=== PATIENT | female | born 1960 | race Caucasian/White ===

== ENCOUNTER 2017-10-24 19:39 | Emergency (ER) | payer BC, SELFPAY | END 2017-10-24 20:20 | disposition home or self-care (01) | PROVIDERS: Emergency Provider Nurse Practitioner Family; Family Provider Family Medicine; Visit Provider Nurse Practitioner Family | DX: J06.9 Acute upper respiratory infection, unspecified (principal); E78.5 Hyperlipidemia, unspecified; Z88.2 Allergy status to sulfonamides; Z88.8 Allergy status to other drugs, medicaments and biological substances; Z79.82 Long term (current) use of aspirin; Z79.899 Other long term (current) drug therapy | CPT/HCPCS: 87880; 99201 ==

== ENCOUNTER 2017-10-30 10:51 | Emergency (ER) | payer BC, SELFPAY | END 2017-10-30 11:13 | disposition home or self-care (01) | PROVIDERS: Emergency Provider Nurse Practitioner; Visit Provider Nurse Practitioner | DX: H66.91 Otitis media, unspecified, right ear (principal); K21.9 Gastro-esophageal reflux disease without esophagitis; Z88.2 Allergy status to sulfonamides | CPT/HCPCS: 99201 ==

== ENCOUNTER → 2017-12-29 14:43 | Outpatient (CLI) | payer BC, SELFPAY ==
--- NOTE | 2017-12-29 14:47 | MR_ITS ---
MR cervical spine wo con, MR 3-d myelogram/MRCP Ordering Physician: Leyla Burch Patient Age: 57 years: Female HISTORY: Neck pain on and off for years. Bilateral arm pain.-Numbness tingling. Getting worse TECHNIQUE: Sagittal STIR, T1, T2, axial T1 and T2. On 1.5T Siemens wide bore MRI. 3-D MR myelogram image set obtained & performed on MRI workstation. Additional sagittal thin section T2 weighted dataset obtained from this latter acquisition as well (---76 CPT) COMPARISON : No previous cervical studies FINDINGS. Scant mucosal thickening sphenoid sinus The cervical cranial junction appears intact. Nonspecific straightening cervical spine. Modest volume underlying osseous spinal canal C2/3 disc and cord normal. C3/4. Slight disc space narrowing posteriorly with mild spondylosis. Minor posterior hypertrophic endplate ridging with with early uncovertebral joint hypertrophy ileum encroachment upon entry neural foramen bilaterally C3/4 disc intact. Trace uncovertebral joint hypertrophy bilateral C4/5. Mild bilateral uncovertebral joint hypertrophy yields/moderate encroachment upon the left foramen and mild to the right. C5/6 Mild degenerative disc space narrowing. Mild reactive endplate changes posteriorlyCervical spondylosis . Mild mixed disc protrusion to the right.-. Indents thecal sac & slightly effaces/flattens anterior anterior aspect of cervical cord midline midline and to the right.... c6/7 disc intact. C7/T1, T1/T2, T2/T3, T3/T4 disc included and unremarkable. More generous osseous spinal canal to the lower L-spine level. 3-D MR myelogram image set shows narrowing of thecal sac to the region of multilevel cervical spondylosis, from C3 through C6. The borderline spinal stenosis most notable at C5/6 and slight lesser degree C4/5 through 6. ======= IMPRESSION: ==== Early degenerative disc changes & cervical spondylosis.-Features narrow the spinal canal from C3 through C6; and yield mild bilateral foraminal encroachment at these levels to varying degrees. Borderline spinal stenosis through these levels at the mid C-spine Findings most notable at C5-C6:. A mixed disc protrusion mildly effaces and flattens flattens cervical cord midline & to the right C3/4 with subtle posterior ridging & mild lateral uncovertebral joint hypertrophy yielding mild bilateral foraminal encroachment. . C4/5 with mild uncovertebral joint hypertrophy with foraminal encroachment slightly more evident to the left than right.
== END ==
PROVIDERS: Family Provider Family Medicine; PCP Nurse Practitioner; Visit Provider Nurse Practitioner Family
DX: M54.2 Cervicalgia (principal)
CPT/HCPCS: 72141; 76376

== ENCOUNTER 2018-01-12 09:24 | Emergency (ER) | payer BC, SELFPAY ==
[2018-01-12 09:42] VITALS: BP 120/73; PULSE 95; RESP 20; TEMP 36.8; O2SAT 98; BMI 34.0
--- NOTE | 2018-01-12 09:50 | HMH.EDUTC ---
[facility] [place] Disposition Clinical Impression: Otitis media Qualifiers: Otitis media type: unspecified Laterality: right Qualified Code(s): H66.91 - Otitis media, unspecified, right ear Disposition: Home, Self-Care Condition on Discharge: Good Instructions: Vertigo, DI for Vertigo, DI for Otitis Media (Middle Ear Infection)-Child Additional Instructions: Make slow movements and stand slowly to help reduce dizziness If symptoms persist follow up with family doctor If symptoms worsen or become life threatening go straight to ER REturn if needed Take medication as prescribed Prescriptions: Amoxicillin [Amoxicillin 500mg Cap] 500 mg PO TID #30 cap Meclizine HCl [Meclizine 25mg Tab] 25 mg PO BID PRN #20 tab PRN Reason: Dizziness Referrals: Sintia Pope APRN [Primary Care Provider] - Forms: Work/School Release Time of Disposition: 10:16 Medical Decision Making - Medical Records Medical records reviewed: Yes: I reviewed the patient's medical records. Vital Signs: 01/12/18 09:42 Temperature 98.2 F Temperature Source Temporal Artery Scan Pulse Rate [Radial] 95 H Respiratory Rate 20 Blood Pressure [Right Arm] 120/73 Blood Pressure Mean [Right Arm] 88 Blood Pressure Source [Right Arm] Automatic Cuff Blood Pressure Position [Right Arm] Sitting 02 Sat by Pulse Oximetry 98 Oxygen Delivery Method Room Air Orders (Tests/Meds): ED MEDICATIONS Discontinued Medications Generic Name Dose Route Start Last Admin Trade Name Freq PRN Reason Stop Dose Admin Meclizine HCl 25 mg 01/12/18 09:59 01/12/18 10:02 Antivert 25mg Tablet PO 01/12/18 10:00 25 mg ONCE ONE Administration - Frandy Inquiry Pt receiving controlled substance: No Frandy was queried for this patient: No - Reevaluation(s) Time: 10:13 Reevaluation #1: Patient state that she is feeling better now that medication helped with dizziness State that she no longer is having dizziness [facility] [place] HPI - General Stated complaint: dizzy inner ear Mode of Arrival: Ambulatory Source of Information: Patient Limitations: No Limitations Description of Symptoms (Recalled from Triage Doc. by RN): both ears draining and dizzy x 2 days HEENT Symptoms (Recalled from RN notes): Yes Resp Symptoms (Recalled from RN notes): No Skin Symptoms (Recalled from RN notes): No MS Symptoms (Recalled from RN notes): No Functional Status (Recalled from RN notes): na - History of Present Illness Provider Complaint: Patient states that she has had chronic ear problems State that she feels like there is something running/draining from her right ear but has not seen any liquid. State that she has noticed that if she moves quickly she gets dizzy State that yesterday she rolled over in bed and she got dizzy and nausous States that she did this before with an inner ear infection and had to take Meclizine and antibiotics State that this feels just like it did then - Related Data Home Medications Medication Instructions Recorded Confirmed Aspirin 81 mg PO DAILY 01/12/18 01/12/18 Olmesartan/Hydrochlorothiazide 1 mg PO DAILY 01/12/18 01/12/18 [Olmesartan-Hctz 40-12.5 mg Tab] Pantoprazole Sodium [Protonix 40mg 40 mg PO BID 01/12/18 01/12/18 tablet] Pravastatin Sodium [Pravastatin 10 mg PO DAILY 01/12/18 01/12/18 Sodium] Previous Rx's Medication Instructions Recorded Amoxicillin [Amoxicillin 500mg 500 mg PO TID #30 cap 01/12/18 Cap] Meclizine HCl [Meclizine 25mg Tab] 25 mg PO BID PRN #20 tab 01/12/18 Allergies Allergy/AdvReac Type Severity Reaction Status Date / Time Sulfa (Sulfonamide Allergy Unknown Unverified 10/28/17 14:31 Antibiotics) [SULFA (SULFONAMIDE ANTIBIOTICS)] tiotropium Allergy Unknown Unverified 10/28/17 14:31 [From [facility] HANDIHALER] - Worker's Comp Is this a Worker's Comp case?: No [facility] History I have reviewed the patient's past medical history: Yes - Social History Sm
--- NOTE | 2018-01-12 09:59 | ED_ITS ---
[facility] [place] Disposition Clinical Impression: Otitis media Qualifiers: Otitis media type: unspecified Laterality: right Qualified Code(s): H66.91 - Otitis media, unspecified, right ear Disposition: Home, Self-Care Condition on Discharge: Good Instructions: Vertigo, DI for Vertigo, DI for Otitis Media (Middle Ear Infection)-Child Additional Instructions: Make slow movements and stand slowly to help reduce dizziness If symptoms persist follow up with family doctor If symptoms worsen or become life threatening go straight to ER REturn if needed Take medication as prescribed Prescriptions: Amoxicillin [Amoxicillin 500mg Cap] 500 mg PO TID #30 cap Meclizine HCl [Meclizine 25mg Tab] 25 mg PO BID PRN #20 tab PRN Reason: Dizziness Referrals: Sintia Pope APRN [Primary Care Provider] - Forms: Work/School Release Time of Disposition: 10:16 Medical Decision Making - Medical Records Medical records reviewed: Yes: I reviewed the patient's medical records. Vital Signs: 01/12/18 09:42 Temperature 98.2 F Temperature Source Temporal Artery Scan Pulse Rate [Radial] 95 H Respiratory Rate 20 Blood Pressure [Right Arm] 120/73 Blood Pressure Mean [Right Arm] 88 Blood Pressure Source [Right Arm] Automatic Cuff Blood Pressure Position [Right Arm] Sitting 02 Sat by Pulse Oximetry 98 Oxygen Delivery Method Room Air Orders (Tests/Meds): ED MEDICATIONS Discontinued Medications Generic Name Dose Route Start Last Admin Trade Name Freq PRN Reason Stop Dose Admin Meclizine HCl 25 mg 01/12/18 09:59 01/12/18 10:02 Antivert 25mg Tablet PO 01/12/18 10:00 25 mg ONCE ONE Administration - Frandy Inquiry Pt receiving controlled substance: No Frandy was queried for this patient: No - Reevaluation(s) Time: 10:13 Reevaluation #1: Patient state that she is feeling better now that medication helped with dizziness State that she no longer is having dizziness [facility] [place] HPI - General Stated complaint: dizzy inner ear Mode of Arrival: Ambulatory Source of Information: Patient Limitations: No Limitations Description of Symptoms (Recalled from Triage Doc. by RN): both ears draining and dizzy x 2 days HEENT Symptoms (Recalled from RN notes): Yes Resp Symptoms (Recalled from RN notes): No Skin Symptoms (Recalled from RN notes): No MS Symptoms (Recalled from RN notes): No Functional Status (Recalled from RN notes): na - History of Present Illness Provider Complaint: Patient states that she has had chronic ear problems State that she feels like there is something running/draining from her right ear but has not seen any liquid. State that she has noticed that if she moves quickly she gets dizzy State that yesterday she rolled over in bed and she got dizzy and nausous States that she did this before with an inner ear infection and had to take Meclizine and antibiotics State that this feels just like it did then - Related Data Home Medications Medication Instructions Recorded Confirmed Aspirin 81 mg PO DAILY 01/12/18 01/12/18 Olmesartan/Hydrochlorothiazide 1 mg PO DAILY 01/12/18 01/12/18 [Olmesartan-Hctz 40-12.5 mg Tab] Pantoprazole Sodium [Protonix 40mg 40 mg PO BID 01/12/18 01/12/18 tablet] Pravastatin Sodium [Pravastatin 10 mg PO DAILY 01/12/18 01/12/18 Sodium] Prev
[2018-01-12 10:19] VITALS: BP 120/73; PULSE 95; RESP 20; TEMP 36.8; O2SAT 98
== END 2018-01-12 10:20 | disposition home or self-care (01) ==
PROVIDERS: Emergency Provider Nurse Practitioner; Family Provider Family Medicine; PCP Nurse Practitioner
DX: H66.91 Otitis media, unspecified, right ear (principal); Z88.2 Allergy status to sulfonamides; Z88.8 Allergy status to other drugs, medicaments and biological substances
CPT/HCPCS: 99202

== ENCOUNTER → 2018-01-14 13:56 | Outpatient (CLI) | payer BC, SELFPAY ==
--- NOTE | 2018-01-14 14:04 | US_ITS ---
US thyroid HISTORY: Follow-up thyroid nodule ITS.REASON: THYROID DISEASE ORDERING PHYSICIAN: Sintia Pope PATIENT AGE: 57 years COMPARISON: None FINDINGS: Right lobe: 4.5 x 1.6 x 1.8 cm. There is a 7 mm mixed mostly hypoechoic nodule in the right lateral aspect of the isthmus similar to the previous exam. A 3 mm hypoechoic nodules present in the lower pole Left lobe: 3.8 x 1.2 x 1.6 cm with homogeneous echogenicity. Isthmus: 7 mm mixed hypoechoic nodule laterally IMPRESSION: Overall no change in the heterogeneous hypoechoic nodule of the right aspect of the isthmus. Low level of suspicion for malignancy.
== END ==
PROVIDERS: Family Provider Family Medicine; PCP Nurse Practitioner; Visit Provider Nurse Practitioner
DX: E07.9 Disorder of thyroid, unspecified (principal)
CPT/HCPCS: 76536

== ENCOUNTER → 2018-04-20 13:43 | Outpatient (POV) | payer BC, SELFPAY | PROVIDERS: Family Provider Family Medicine; PCP Family Medicine; Visit Provider Nurse Practitioner Acute Care | DX: Z00.00 Encounter for general adult medical examination without abnormal findings (principal) ==

== ENCOUNTER 2018-05-04 12:23 | Emergency (ER) | payer BC, SELFPAY ==
[2018-05-04 12:33] VITALS: BP 188/89; PULSE 68; RESP 20; TEMP 36.8; O2SAT 100; BMI 32.1
--- NOTE | 2018-05-04 12:46 | HMH.EDUTC ---
[facility] [place] Clinical Impression: Muscle spasm Arm pain Qualifiers: Laterality: left Qualified Code(s): M79.602 - Pain in left arm Disposition: Home, Self-Care Condition on Discharge: Good Instructions: DI for Muscle Spasm Additional Instructions: *Remember you had a Toradol shot in the clinic today, which is similar to Motrin *Not additional anti-inflammatory like motrin, aleve, advil with the above amount of ibuprofen for 8 hours. You can still take Tylenol every 4 hours as needed if you need something else for pain *Ice 20 minutes every 2 hours for the first 48 hours after the initial injury followed by moist heat every 20 minutes 3-4 times a day to affected area *Muscle relaxer every 8 hours as needed for muscle spasms but remember, it WILL cause drowsiness You cannot take it and drive, operate machinery or care for small children. *Keep this area active, no movement leads to more stiffness, However take it easy and avoid heavy lifting pushing or pulling If you begin having any chest pain or any life threatening symptoms, go straight to ER Follow up with family doctor in 24-48 hours if no improvement or worsening of symptoms Prescriptions: Cyclobenzaprine HCl [Flexeril 10mg tablet] 10 mg PO TID PRN #15 tab PRN Reason: Muscle Spasm Etodolac [Etodolac 200mg Cap] 200 mg PO Q6H PRN #20 cap PRN Reason: Moderate Pain Referrals: Cameron Schreiber MD [Primary Care Provider] - As needed (Follow up in 24-48 hours if no improvement or worsening of symptoms) Time of Disposition: 13:18 Medical Decision Making - Medical Records Medical records reviewed: Yes: I reviewed the patient's medical records. - Frandy Inquiry Pt receiving controlled substance: No Frandy was queried for this patient: No Vital Signs: 05/04/18 12:33 05/04/18 13:11 Temperature 98.2 F 98.2 F Temperature Source Temporal Artery Scan Temporal Artery Scan Pulse Rate 68 Pulse Rate [Brachial] 68 Respiratory Rate 20 20 Blood Pressure 188/89 Blood Pressure [Right Arm] 188/89 Blood Pressure Mean [Right Arm] 122 Blood Pressure Position [Right Arm] Sitting 02 Sat by Pulse Oximetry 100 Oxygen Delivery Method Room Air Room Air Orders (Tests/Meds): ED MEDICATIONS Discontinued Medications Generic Name Dose Route Start Last Admin Trade Name Freq PRN Reason Stop Dose Admin Ketorolac Tromethamine 60 mg 05/04/18 12:50 05/04/18 12:56 Toradol 60mg/2ml Vial IM 05/04/18 12:51 60 mg ONCE ONE Administration [facility] [place] - General Stated complaint: Pain in left side Time Seen by Provider: 05/04/18 12:46 Mode of Arrival: Ambulatory Source of Information: Patient Limitations: No Limitations Description of Symptoms (Recalled from Triage Doc. by RN): PT STATES SHE HAS PAIN AND TINGLING IN HER LEFT ARM AND DOWN HER SIDE AND LEG. HAS BEEN UNPACKING AND NOT SURE IF SHE'S CAUSED AN INJURY. HEENT Symptoms (Recalled from RN notes): No Resp Symptoms (Recalled from RN notes): No Skin Symptoms (Recalled from RN notes): No MS Symptoms (Recalled from RN notes): Yes Functional Status (Recalled from RN notes): NA - History of Present Illness Provider Complaint: Patient state that she has been moving alot of furniture and heavy lifting State that she has back problems already and thinks she may have pinched a nerve State that she has pain in left arm and feels like electricity at times that shoots down her arm and whole left side even through her hip and leg State that she feels like she has a muscle spasm in the left shoulder and maybe a pinched nerve. State that she had a left over muscle relaxer and she took one last night and it felt better, pain was gone and was able to sleep This morning she felt tight again so she came in today to get checked out Denies chest pain, denies SOA - Related Data Home Medications Medication Instructions Recorded Confirmed Aspirin 81 mg PO DAILY 01/12/18 02/17/18 Olmesartan/Hydrochl
--- NOTE | 2018-05-04 12:50 | ED_ITS ---
[facility] [place]ression: Muscle spasm Arm pain Qualifiers: Laterality: left Qualified Code(s): M79.602 - Pain in left arm Disposition: Home, Self-Care Condition on Discharge: Good Instructions: DI for Muscle Spasm Additional Instructions: *Remember you had a Toradol shot in the clinic today, which is similar to Motrin *Not additional anti-inflammatory like motrin, aleve, advil with the above amount of ibuprofen for 8 hours. You can still take Tylenol every 4 hours as needed if you need something else for pain *Ice 20 minutes every 2 hours for the first 48 hours after the initial injury followed by moist heat every 20 minutes 3-4 times a day to affected area *Muscle relaxer every 8 hours as needed for muscle spasms but remember, it WILL cause drowsiness You cannot take it and drive, operate machinery or care for small children. *Keep this area active, no movement leads to more stiffness, However take it easy and avoid heavy lifting pushing or pulling If you begin having any chest pain or any life threatening symptoms, go straight to ER Follow up with family doctor in 24-48 hours if no improvement or worsening of symptoms Prescriptions: Cyclobenzaprine HCl [Flexeril 10mg tablet] 10 mg PO TID PRN #15 tab PRN Reason: Muscle Spasm Etodolac [Etodolac 200mg Cap] 200 mg PO Q6H PRN #20 cap PRN Reason: Moderate Pain Referrals: Cmaeron Schreiber MD [Primary Care Provider] - As needed (Follow up in 24-48 hours if no improvement or worsening of symptoms) Time of Disposition: 13:18 Medical Decision Making - Medical Records Medical records reviewed: Yes: I reviewed the patient's medical records. - Frandy Inquiry Pt receiving controlled substance: No Frandy was queried for this patient: No Vital Signs: 05/04/18 12:33 05/04/18 13:11 Temperature 98.2 F 98.2 F Temperature Source Temporal Artery Scan Temporal Artery Scan Pulse Rate 68 Pulse Rate [Brachial] 68 Respiratory Rate 20 20 Blood Pressure 188/89 Blood Pressure [Right Arm] 188/89 Blood Pressure Mean [Right Arm] 122 Blood Pressure Position [Right Arm] Sitting 02 Sat by Pulse Oximetry 100 Oxygen Delivery Method Room Air Room Air Orders (Tests/Meds): ED MEDICATIONS Discontinued Medications Generic Name Dose Route Start Last Admin Trade Name Freq PRN Reason Stop Dose Admin Ketorolac Tromethamine 60 mg 05/04/18 12:50 05/04/18 12:56 Toradol 60mg/2ml Vial IM 05/04/18 12:51 60 mg ONCE ONE Administration [facility] [place] General Stated complaint: Pain in left side Time Seen by Provider: 05/04/18 12:46 Mode of Arrival: Ambulatory Source of Information: Patient Limitations: No Limitations Description of Symptoms (Recalled from Triage Doc. by RN): PT STATES SHE HAS PAIN AND TINGLING IN HER LEFT ARM AND DOWN HER SIDE AND LEG. HAS BEEN UNPACKING AND NOT SURE IF SHE'S CAUSED AN INJURY. HEENT Symptoms (Recalled from RN notes): No Resp Symptoms (Recalled from RN notes): No Skin Symptoms (Recalled from RN notes): No MS Symptoms (Recalled from RN notes): Yes Functional Status (Recalled from RN notes): NA - History of Present Illness Provider Complaint: Patient state that she has been moving alot of furniture and heavy lifting State that she has back problems already and thinks she may have pinched a nerve State that she has
[2018-05-04 13:11] VITALS: BP 188/89; PULSE 68; RESP 20; TEMP 36.8; O2SAT 100
== END 2018-05-04 13:20 | disposition home or self-care (01) ==
PROVIDERS: Emergency Provider Nurse Practitioner; Family Provider Family Medicine; PCP Family Medicine
DX: M62.838 Other muscle spasm (principal); M79.602 Pain in left arm; I10 Essential (primary) hypertension; E78.5 Hyperlipidemia, unspecified; K21.9 Gastro-esophageal reflux disease without esophagitis; Z79.82 Long term (current) use of aspirin; Z88.2 Allergy status to sulfonamides; Z88.8 Allergy status to other drugs, medicaments and biological substances; Z90.49 Acquired absence of other specified parts of digestive tract
CPT/HCPCS: 96372; 99201

== ENCOUNTER → 2018-10-02 08:10 | Outpatient (CLI) | payer BC, SELFPAY ==
--- NOTE | 2018-10-02 08:32 | US_ITS ---
US soft tissue head and neck COMPARISON: None HISTORY: Palpable fullness in skin and subcutaneous tissues mid upper back TECHNIQUE: Targeted ultrasound FINDINGS: There is normal-appearing but slightly thickened subcutaneous tissue at the area of palpable fullness. There is no cystic or solid mass identified. Limited scanning in other areas of the back showed similar appearing echogenicity but less thick. IMPRESSION: Probable focal asymmetric subcutaneous fat at the site of clinical interest with no definite discernible cystic or solid mass identified
== END ==
PROVIDERS: PCP Nurse Practitioner Family; Visit Provider Nurse Practitioner Family
DX: R22.9 Localized swelling, mass and lump, unspecified (principal)
CPT/HCPCS: 76536

== ENCOUNTER → 2018-10-19 10:56 | Outpatient (POV) | payer BC, SELFPAY | PROVIDERS: Visit Provider Nurse Practitioner Acute Care | DX: Z00.00 Encounter for general adult medical examination without abnormal findings (principal) ==

== ENCOUNTER → 2018-12-14 09:28 | Outpatient (POV) | payer BC, SELFPAY | PROVIDERS: Visit Provider Nurse Practitioner Acute Care | DX: Z00.00 Encounter for general adult medical examination without abnormal findings (principal) ==

== ENCOUNTER 2019-04-11 14:07 | Emergency (ER) | payer BC, SELFPAY ==
[2019-04-11 14:28] VITALS: BP 112/92; PULSE 76; RESP 19; TEMP 36.6; O2SAT 97; BMI 32.9
--- NOTE | 2019-04-11 15:13 | HMH.EDUTC ---
[facility] [place]ression: Bilateral otitis media Qualifiers: Otitis media type: unspecified Qualified Code(s): H66.93 - Otitis media, unspecified, bilateral Disposition: Home, Self-Care Condition on Discharge: Good Instructions: Ear Infections (Alternative Therapy), Ear Infections (Middle Ear) (Alternative Therapy), Middle Ear Infection, Amoxicillin Additional Instructions: *Monitor Temp, Over the counter Motrin or Tylenol as directed/as needed Tylenol every 4 hours and Motrin every 6 hours (as long as your family doctor has told you that you can take it) for fever or pain. and straight to ER if unable to lower temp less than 101.0 after medication given *Warm salt water gargles may help to soothe the throat *Throat Lozenges *Warm fluids *Sleep elevated *Humidifier/Vaporizer Follow up IMMEDIATELY for new or worsening symptoms or no Noticeable improvement over the next 48-72 hours. 911 for difficulty breathing or swallowing Prescriptions: Amoxicillin [Amoxicillin 500mg Cap] 500 mg PO TID #30 cap Referrals: Cameron Schreiber MD [Primary Care Provider] - As needed Time of Disposition: 15:15 Medical Decision Making - Frandy Inquiry Pt receiving controlled substance: No Frandy was queried for this patient: No Vital Signs: 04/11/19 14:28 04/11/19 15:20 Temperature 97.8 F 97.8 F Temperature Source Oral Oral Pulse Rate 76 Pulse Rate [Right Brachial] 76 Respiratory Rate 19 19 Blood Pressure 112/92 H Blood Pressure [Right Arm] 112/92 H Blood Pressure Mean [Right Arm] 98 Blood Pressure Source Automatic Cuff Blood Pressure Source [Right Arm] Automatic Cuff Blood Pressure Position Sitting Blood Pressure Position [Right Arm] Sitting 02 Sat by Pulse Oximetry 97 Oxygen Delivery Method Room Air Room Air [facility] [place] - General Stated complaint: possible double ear infection Time Seen by Provider: 04/11/19 15:13 Mode of Arrival: Family Vehicle Source of Information: Patient Limitations: No Limitations Description of Symptoms (Recalled from Triage Doc. by RN): C/O BILATERAL EAR PAIN AND SORE LYMPH NODES BELOW EARS X 3 DAYS HEENT Symptoms (Recalled from RN notes): Yes Resp Symptoms (Recalled from RN notes): No Skin Symptoms (Recalled from RN notes): No MS Symptoms (Recalled from RN notes): No Functional Status (Recalled from RN notes): N/A - History of Present Illness Provider Complaint: Patient states that she has been having pain in both ears for over a week and it has continued to get worse States today they was hurting worse and she felt a little feverish and was having pressure so she came in to get them checked - Related Data Home Medications Medication Instructions Recorded Confirmed Aspirin 81 mg PO DAILY 01/12/18 04/11/19 Olmesartan/Hydrochlorothiazide 1 mg PO DAILY 01/12/18 04/11/19 [Olmesartan-Hctz 40-12.5 mg Tab] Pantoprazole Sodium [Protonix 40mg 40 mg PO DAILY 01/12/18 04/11/19 tablet] Pravastatin Sodium 10 mg PO DAILY 01/12/18 04/11/19 Triamterene/Hydrochlorothiazid 1 tab PO DAILY 04/11/19 04/11/19 [Maxzide-25 tablet] Previous Rx's Medication Instructions Recorded Amoxicillin [Amoxicillin 500mg 500 mg PO TID #30 cap 04/11/19 Cap] Allergies Allergy/AdvReac Type Severity Reaction Status Date / Time Sulfa (Sulfonamide Allergy Unknown Rash Verified 12/26/18 12:59 Antibiotics) [SULFA (SULFONAMIDE ANTIBIOTICS)] tiotropium Allergy Unknown Rash Verified 12/26/18 12:59 [From SP[facility]IVA WITH HANDIHALER] - Worker's Comp Is this a Worker's Comp case?: No [facility] History - Hepatitis A Screen Drug use history?: No High risk sexual behaviors?: No History of sexually transmitted infection?: No Currently employed?: No Childcare worker?: No Do you have indoor plumbing?: Yes Do you have electricity?: Yes Attestation statement:: This patient has been screened for Hepatitis A risk factors. I have reviewed the patient's
[2019-04-11 15:20] VITALS: BP 112/92; PULSE 76; RESP 19; TEMP 36.6; O2SAT 97
== END 2019-04-11 15:24 | disposition home or self-care (01) ==
PROVIDERS: Emergency Provider Nurse Practitioner; PCP Family Medicine
DX: H66.93 Otitis media, unspecified, bilateral (principal); K21.9 Gastro-esophageal reflux disease without esophagitis; E78.5 Hyperlipidemia, unspecified; I10 Essential (primary) hypertension; Z88.2 Allergy status to sulfonamides
CPT/HCPCS: 99201

== ENCOUNTER → 2019-08-27 12:05 | Outpatient (CLI) | payer BC, SELFPAY ==
--- NOTE | 2019-08-27 12:12 | XR_ITS ---
PROCEDURE: XR ANKLE LT MIN 3V CLINICAL INDICATION: LT ANKLE INSTABILITY COMPARISON: No exams were available for comparison FINDINGS: The medial and lateral malleolus appear intact and the ankle mortise appears normal. The soft tissues are normal. There is a small spur of the calcaneus at the insertion of the plantar tendon with a small ossification likely within the plantar tendon from the calcaneal spur by 4-5 mm. IMPRESSION: Grossly negative left ankle, moderate-sized plantar calcaneal spur is noted Dictated by: Dr. Wilver Wong MD 08/27/2019 12:[address] Wilver Wong MD in [place] 08/27/2019 12:28
== END ==
PROVIDERS: PCP Family Medicine; Visit Provider Family Medicine
DX: M25.372 Other instability, left ankle (principal)
CPT/HCPCS: 73610

== ENCOUNTER 2019-09-21 17:30 | Outpatient (RCR) | payer BC, SELFPAY | END 2019-09-21 17:35 | disposition home or self-care (01) | LOC: PT 17:30 | PROVIDERS: PCP Family Medicine; Visit Provider Family Medicine | DX: M54.16 Radiculopathy, lumbar region (principal) | CPT/HCPCS: 97010; 97014; 97110; 97163; G0283 ==

== ENCOUNTER 2020-05-10 18:40 | Emergency (ER) | payer BC, SELFPAY ==
[2020-05-10 18:55] VITALS: BP 150/83; PULSE 71; RESP 20; TEMP 36.5; O2SAT 97; BMI 32.5
--- NOTE | 2020-05-10 19:02 | HMH.EDUTC ---
[facility] [place] Impression: Dizziness Disposition: Home, Self-Care Condition on Discharge: Good Instructions: Vertigo, Meclizine, DI for Dizziness-Nonvertigo Additional Instructions: Make sure that you make slow steady movements when getting up from lying or sitting position, sit and let your legs dangle before trying to stand to help with dizziness *Do not make any sudden movements as this could make your dizziness worse Take medication as prescribed Use you allergy medication and your nasal spray Follow up with your family doctor if no improvement or any worsening of symptoms in the next 48-72 hours Straight to ER if any life threatening symptoms Prescriptions: Meclizine HCl [Antivert 25mg tablet] 25 mg PO BID PRN #20 tab PRN Reason: Dizziness Transmission Status: Received by [id number] Referrals: Cameron Schreiber MD [Primary Care Provider] - As needed Time of Disposition: 19:12 Medical Decision Making - Frandy Inquiry Pt receiving controlled substance: No Frandy was queried for this patient: No Vital Signs: 05/10/20 18:55 Temperature 97.7 F Temperature Source Oral Pulse Rate [Right Brachial] 71 Respiratory Rate 20 Blood Pressure [Right Arm] 150/83 H Blood Pressure Mean [Right Arm] 105 Blood Pressure Source [Right Arm] Automatic Cuff Blood Pressure Position [Right Arm] Sitting 02 Sat by Pulse Oximetry 97 Oxygen Delivery Method Room Air Orders (Tests/Meds): ED MEDICATIONS Discontinued Medications Generic Name Dose Route Start Last Admin Trade Name Freq PRN Reason Stop Dose Admin Meclizine HCl 25 mg 05/10/20 19:03 05/10/20 19:06 Antivert 25mg Tablet PO 05/10/20 19:04 25 mg ONCE ONE Administration Medical Decision Narrative: Patient states that she feels much better and dizziness much improved after medication no longer having any dizziness [facility] [place] - General Stated complaint: nausea Time Seen by Provider: 05/10/20 19:02 Mode of Arrival: Ambulatory Source of Information: Patient Limitations: No Limitations Description of Symptoms (Recalled from Triage Doc. by RN): PATIENT STATES THAT FOR THE PAST WEEK SHE HAS HAD DIZZINESS AND NAUSEA, HOWEVER IT HAS GOTTEN WORSE OVER THE PAST 2 DAYS AFTER A TRIP TO [place]. SHE STATES THAT EVEN TURNING OVER IN BED MAKES HER DIZZY. ALSO C/O BILATERAL EAR SENSITIVITY HEENT Symptoms (Recalled from RN notes): Yes Resp Symptoms (Recalled from RN notes): No Skin Symptoms (Recalled from RN notes): No MS Symptoms (Recalled from RN notes): No Functional Status (Recalled from RN notes): WNL - History of Present Illness Provider Complaint: Patient states that she has had problems with dizziness before and had to take Meclizine but it has been awhile States that they was recently in [place] and she noticed she was having some dizziness when she would change positions quickly or roll over in bed States that she felt like she was standing still and the room around her was spinning States that it made her have some nausea Denies blurred vision, denies any injury States that dizziness seems better since she got home but noticed that it is still happening off and on - Related Data Home Medications Medication Instructions Recorded Confirmed Aspirin 81 mg PO DAILY 01/12/18 11/22/19 Pantoprazole Sodium [Protonix 40mg 40 mg PO DAILY 01/12/18 11/22/19 tablet] Pravastatin Sodium 10 mg PO DAILY 01/12/18 11/22/19 Triamterene/Hydrochlorothiazid 1 tab PO DAILY 04/11/19 11/22/19 [Maxzide-25 tablet] lisinopril 10 mg tablet 10 mg PO tab 11/22/19 11/22/19 Previous Rx's Medication Instructions Recorded Fluticasone Propionate [Flonase 1 spr NS DAILY 14 Days #1 bottle 09/19/19 50mcg nasal spray 16gm] meloxicam 7.5 mg tablet 7.5 mg PO DAILY 30 Days #30 tab 11/22/19 Meclizine HCl [Antivert 25mg 25 mg PO BID PRN #20 tab 05/10/20 tablet] Allergies Allergy/AdvReac Type Severity Reaction Status Date / Time Sulfa (Sulfonamide
[2020-05-10 19:20] VITALS: BP 150/83; PULSE 71; RESP 20; TEMP 36.5; O2SAT 97
== END 2020-05-10 19:23 | disposition home or self-care (01) ==
PROVIDERS: Emergency Provider Nurse Practitioner; PCP Family Medicine
DX: R42 Dizziness and giddiness (principal); I10 Essential (primary) hypertension; K21.9 Gastro-esophageal reflux disease without esophagitis; E78.5 Hyperlipidemia, unspecified; Z90.09 Acquired absence of other part of head and neck; Z88.2 Allergy status to sulfonamides
CPT/HCPCS: 99201

== ENCOUNTER 2020-08-04 15:15 | Emergency (ER) | payer BC, SELFPAY ==
[2020-08-04 15:22] VITALS: BP 190/91; PULSE 71; RESP 16; TEMP 36.7; O2SAT 97; BMI 33.0
--- NOTE | 2020-08-04 15:30 | HMH.EDGENADL ---
ED Disposition Clinical Impression: Vertigo Disposition: Home, Self-Care Condition on Discharge: Good Instructions: DI for Vertigo Additional Instructions: Meclizine and Phenergan as needed for dizziness and nausea. Follow-up with your primary care provider next week. Prescriptions: Meclizine HCl [Antivert 25mg tablet] 25 mg PO TIDP PRN #15 tab PRN Reason: Vertigo Transmission Status: Received by [facility] Promethazine HCl [Phenergan 25mg tab] 25 mg PO TIDP PRN #15 tab PRN Reason: Nausea And Vomiting Transmission Status: Received by [id number] Referrals: Cameron Schreiber MD [Primary Care Provider] - - Critical Care Critical Care Time: No Attestation: On 08/04/20, the high probability of a clinically significant, sudden or life threatening deterioration of the following system(s) required my full and direct attention, intervention and personal management. The time I documented below is in addition to time spent performing reported procedures but includes the following listed in this critical care notation. Medical Decision Making - Medical Records Medical records reviewed: Yes: I reviewed the patient's medical records. - Frandy Inquiry Pt receiving controlled substance: No Vital Signs: 08/04/20 15:22 08/04/20 15:52 08/04/20 16:46 Temperature 98.1 F Temperature Source Oral Pulse Rate Pulse Rate [Right Radial] 71 69 66 Respiratory Rate 16 Blood Pressure Blood Pressure [Right Arm] 190/91 H 166/88 H 121/72 Blood Pressure Mean [Right Arm] 124 114 88 Blood Pressure Source Blood Pressure Source [Right Arm] Automatic Cuff Automatic Cuff Automatic Cuff Blood Pressure Position Blood Pressure Position [Right Arm] Sitting Sitting Sitting 02 Sat by Pulse Oximetry 97 96 98 Oxygen Delivery Method Room Air Room Air Room Air 08/04/20 17:26 Temperature 98.1 F Temperature Source Oral Pulse Rate 96 H Pulse Rate [Right Radial] Respiratory Rate 19 Blood Pressure 122/70 Blood Pressure [Right Arm] Blood Pressure Mean [Right Arm] Blood Pressure Source Automatic Cuff Blood Pressure Source [Right Arm] Blood Pressure Position Sitting Blood Pressure Position [Right Arm] 02 Sat by Pulse Oximetry Oxygen Delivery Method Room Air - Lab Data Lab results reviewed: Yes: I reviewed the patient's lab results. Lab Results 08/04/20 16:03: WBC 7.2, RBC 4.62, Hgb 15.3, Hct 42.0, MCV 91.1, MCH 33.2 H, MCHC 36.5 H, RDW 12.7, Plt Count 332, MPV 7.5, Neut % (Auto) 44.5, Lymph % (Auto) 39.5, [place] % (Auto) 6.6, Eos % (Auto) 8.6, Baso % (Auto) 0.9, Neut # (Auto) 3.2, Lymph # (Auto) 2.8, [place] # (Auto) 0.5, Eos # (Auto) 0.6 H, Baso # (Auto) 0.1 08/04/20 16:03: Sodium 139, Potassium 4.1, Chloride 100, Carbon Dioxide 30, Anion Gap 13.1, BUN 16, Creatinine 0.80, Estimated Creat Clear 99, Estimated GFR 74, Est GFR ( Amer) 89, Glucose 103 H, Calcium 9.7, Total Bilirubin 0.7, AST 55 H, ALT 60, Alkaline Phosphatase 78, Total Protein 7.5, Albumin 4.4, Globulin 3.1, Albumin/Globulin Ratio 1.4 Result diagrams: 08/04/20 16:03 08/04/20 16:03 - CT Data CT Scan: Head Time Received: 17:[address] Reviewed: Yes: I have viewed the radiologist's interpretation Findings Narrative: PROCEDURE: CT HEAD/BRAIN WO CON CLINICAL INDICATION: vertigo Dizziness and headache with blurred vision COMPARISON: No exams were available for comparison TECHNIQUE: Axial images obtained. All CT scans at the facility use one or more dose reduction, viz: automated exposure control, ma/kV adjustment per patient size (including targeted exams where dose is matched to indication, i.e. head), or iterative reconstruction technique. FINDINGS: No midline shift, mass effect, intracranial hemorrhage, hydrocephalus, or extra-axial fluid collection is evident. The calvarium has an unremarkable appearance. No mastoid effusion. There is moderate mucosal thickening of the ethmoid sinuses and mild
--- NOTE | 2020-08-04 15:39 | CT_ITS ---
PROCEDURE: CT HEAD/BRAIN WO CON CLINICAL INDICATION: vertigo Dizziness and headache with blurred vision COMPARISON: No exams were available for comparison TECHNIQUE: Axial images obtained. All CT scans at the facility use one or more dose reduction, viz: automated exposure control, ma/kV adjustment per patient size (including targeted exams where dose is matched to indication, i.e. head), or iterative reconstruction technique. FINDINGS: No midline shift, mass effect, intracranial hemorrhage, hydrocephalus, or extra-axial fluid collection is evident. The calvarium has an unremarkable appearance. No mastoid effusion. There is moderate mucosal thickening of the ethmoid sinuses and mild mucosal thickening the sphenoid sinus. IMPRESSION: No acute intracranial finding Dictated by: Rd Mercer MD 08/04/2020 16:56 Rd Mercer MD in [place] 08/04/2020 16:56
[2020-08-04 15:52] VITALS: BP 166/88; PULSE 69; O2SAT 96
[2020-08-04 16:13] LABS: Basophils # 0.1 K/mm3 (0-0.2); Basophils % 0.9 % (0.1-2.0); Eosinophils # 0.6 K/mm3 (0.0-0.4); Eosinophils % 8.6 % (0.1-12.0); Hemoglobin 15.3 g/dL (12.2-16.2); Lymphocytes # 2.8 K/mm3 (0.7-4.5); Lymphocytes % 39.5 % (10-50); Mean Corpuscular HGB Conc 36.5 g/dL (31.8-35.4); Mean Corpuscular Hemoglobin 33.2 pg (27.0-31.2); Mean Corpuscular Volume 91.1 fl (81-99); Mean Platelet Volume 7.5 fl (7.4-10.4); Monocytes # 0.5 K/mm3 (0.1-1.0); Monocytes % 6.6 % (1.7-9.3); Neutrophils # 3.2 K/mm3 (1.8-7.8); Neutrophils % 44.5 % (37.0-80.0); Platelet Count 332 K/mm3 (142-424); Red Blood Count 4.62 M/mm3 (4.20-5.40); Red Cell Distribution Width 12.7 % (11.5-17.5); White Blood Count 7.2 K/mm3 (4.8-10.8)
[2020-08-04 16:16] LABS: Chloride 100 mmol/L (98-107); Potassium 4.1 mmoL/L (3.5-5.1); Sodium 139 mmol/L (136-145)
[2020-08-04 16:19] LABS: Alanine Aminotransferase 60 U/L (12-78); Albumin Level 4.4 g/dl (3.5-5.0); Albumin/Globulin Ratio 1.4 (1.1-1.8); Alkaline Phosphatase 78 U/L (38-126); Anion Gap 13.1 mEq/L (5-15); Aspartate Amino Transferase 55 U/L (14-36); Bilirubin,Total 0.7 mg/dl (0.2-1.3); Blood Urea Nitrogen 16 mg/dl (7-17); Carbon Dioxide 30 mmol/L (22.0-30.0); Creatinine Clearance Estimated 99 mL/min (50-200); Estimated Glomerular Filt Rate 74 ml/min (>60); GFR (African American) 89 ML/MIN (>60); Globulin 3.1 g/dL (1.3-3.2); Total Protein,Serum 7.5 g/dl (6.3-8.2)
[2020-08-04 16:20] LABS: Calcium 9.7 mg/dl (8.4-10.2); Glucose 103 mg/dl (74-100)
[2020-08-04 16:46] VITALS: BP 121/72; PULSE 66; O2SAT 98
[2020-08-04 17:26] VITALS: BP 122/70; PULSE 96; RESP 19; TEMP 36.7; O2SAT 96
== END 2020-08-04 17:28 | disposition home or self-care (01) ==
PROVIDERS: Emergency Provider Emergency Medicine; PCP Family Medicine
DX: H81.03 Meniere's disease, bilateral (principal); I10 Essential (primary) hypertension; E78.5 Hyperlipidemia, unspecified; K21.9 Gastro-esophageal reflux disease without esophagitis; R00.2 Palpitations; Z79.899 Other long term (current) drug therapy; Z90.49 Acquired absence of other specified parts of digestive tract; Z90.710 Acquired absence of both cervix and uterus
CPT/HCPCS: 70450; 80053; 85025; 99283

== ENCOUNTER 2020-09-01 16:01 | Emergency (ER) | payer BC, SELFPAY ==
[2020-09-01 16:45] VITALS: BP 131/75; PULSE 76; RESP 18; TEMP 36.8; O2SAT 98; BMI 34.2
--- NOTE | 2020-09-01 16:52 | HMH.EDUTC ---
[facility] [place] Dis[place] Clinical Impression: Otitis media Qualifiers: Otitis media type: suppurative Chronicity: acute Laterality: bilateral Recurrence: non-recurrent Spontaneous tympanic membrane rupture: without spontaneous rupture Qualified Code(s): H66.003 - Acute suppurative otitis media without spontaneous rupture of ear drum, bilateral Disposition: Home, Self-Care Condition on Discharge: Good Instructions: DI for Otitis Media (Middle Ear Infection)-Child Prescriptions: Amoxicillin [Amoxicillin 875MG Tab] 875 mg PO Q12H #20 tab [facility] Fluticasone Propionate [Flonase 50mcg nasal spray 16gm] 1 spr NS DAILY 30 Days #1 bottle Transmission [facility]: [facility] predniSONE [Prednisone 20mg Tab] 20 mg PO BID 5 Days #10 tab Transmission Status[facility] Referrals: Cameron Schreiber MD [Primary Care Provider] - Time of Disposition: 16:59 Medical Decision Making - Frandy Inquiry Pt receiving controlled substance: No - Lab Data Lab results reviewed: Yes: I reviewed the patient's lab results. [facility] [place] HPI - General Stated complaint: Sore throat Time Seen by Provider: 09/01/20 16:52 - History of Present Illness Provider Complaint: Patient has sore throat, bilateral ear pain and mild congestion X 2 days. No fever. No vomiting or diarrhea. No loss of taste or smell. She was tested for COVID19 this am due to a positive coworker. Onset (ago): day(s) (2) Location: face Relieving factors: none Exacerbating factors: none Associated symptoms: denies other symptoms Treatments prior to arrival: none - Related Data Home Medications Medication Instructions Recorded Confirmed Aspirin 81 mg PO DAILY 01/12/18 11/22/19 Pantoprazole Sodium [Protonix 40mg 40 mg PO DAILY 01/12/18 11/22/19 tablet] Pravastatin Sodium 10 mg PO DAILY 01/12/18 11/22/19 Triamterene/Hydrochlorothiazid 1 tab PO DAILY 04/11/19 11/22/19 [Maxzide-25 tablet] lisinopril 10 mg tablet 10 mg PO tab 11/22/19 11/22/19 Previous Rx's Medication Instructions Recorded Fluticasone Propionate [Flonase 1 spr NS DAILY 14 Days #1 bottle 09/19/19 50mcg nasal spray 16gm] meloxicam 7.5 mg tablet 7.5 mg PO DAILY 30 Days #30 tab 11/22/19 Meclizine HCl [Antivert 25mg 25 mg PO BID PRN #20 tab 05/10/20 tablet] Meclizine HCl [Antivert 25mg 25 mg PO TIDP PRN #15 tab 08/04/20 tablet] Promethazine HCl [Phenergan 25mg 25 mg PO TIDP PRN #15 tab 08/04/20 tab] Amoxicillin [Amoxicillin 875MG 875 mg PO Q12H #20 tab 09/01/20 Tab] Fluticasone Propionate [Flonase 1 spr NS DAILY 30 Days #1 bottle 09/01/20 50mcg nasal spray 16gm] predniSONE [Prednisone 20mg 20 mg PO BID 5 Days #10 tab 09/01/20 Tab] Allergies Allergy/AdvReac Type Severity Reaction Status Date / Time Sulfa (Sulfonamide Allergy Unknown Rash Verified 11/22/19 08:40 Antibiotics) [SULFA (SULFONAMIDE ANTIBIOTICS)] tiotropium Allergy Unknown Rash Verified 11/22/19 08:40 [From [facility]] [facility] History - Hepatitis A Screen Attestation statement:: This patient has been screened for Hepatitis A risk factors. I have reviewed the patient's past medical history: Yes Medical History: Reports:: Gastroesophageal Reflux Disease(GERD), Hyperlipidemia, Hypertension, Palpitations Denies:: Cancer, Diabetes Mellitus Type 1, Diabetes Mellitus Type 2, Internal Pacemaker, Lung Disease, MRSA, Seizures Other Medical History: Reports: Other Laterality Cases: Bilateral: Tonsillectomy Other Surgeries: Yes: Cardiac Catheterization, Cholecystectomy, Hysterectomy-Total. No: Pacemaker Amputation: No Fractures: No - Social History Smoking Status: Never smoker Alcohol Intake: never Alcohol Intake Frequency:: holidays/special occasions only Occupational Status: employed Housing: house Family Hx:: Diabetes, Cancer, Heart Attack, Hypertension ROS Obtained: Yes All system
[2020-09-01 17:05] VITALS: BP 131/75; PULSE 76; RESP 18; TEMP 36.8; O2SAT 98
[2020-09-01 18:14] LABS: UTC Strep Screen (Rapid) Negative (Negative)
== END 2020-09-01 17:07 | disposition home or self-care (01) ==
PROVIDERS: Emergency Provider Physician Assistant; PCP Family Medicine
DX: H66.003 Acute suppurative otitis media without spontaneous rupture of ear drum, bilateral (principal); K21.9 Gastro-esophageal reflux disease without esophagitis; I10 Essential (primary) hypertension; E78.5 Hyperlipidemia, unspecified; Z88.2 Allergy status to sulfonamides; Z79.899 Other long term (current) drug therapy
CPT/HCPCS: 87880; 99201

== ENCOUNTER → 2020-11-20 13:13 | Outpatient (CLI) | payer BC, SELFPAY | PROVIDERS: PCP Family Medicine; Visit Provider Family Medicine | DX: Z20.822 Contact with and (suspected) exposure to COVID-19 (principal); U07.1 COVID-19 | CPT/HCPCS: U0003 ==

== ENCOUNTER 2021-08-07 16:21 | Emergency (ER) | payer BC, SELFPAY ==
[2021-08-07 16:39] VITALS: BP 141/86; PULSE 82; RESP 16; TEMP 36.6; O2SAT 98; BMI 30.8
--- NOTE | 2021-08-07 17:06 | HMH.EDUTC ---
[facility] [place] Clinical Impression: Otitis media Qualifiers: Otitis media type: unspecified Laterality: bilateral Qualified Code(s): H66.93 - Otitis media, unspecified, bilateral Disposition: Home, Self-Care Condition on Discharge: Good Instructions: Middle Ear Infections (Alternative Therapy), Sinusitis, Middle Ear Infection, Prednisone Additional Instructions: *Monitor Temp, Over the counter Motrin or Tylenol as directed/as needed Tylenol every 4 hours and Motrin every 6 hours (as long as your family doctor has told you that you can take it) for fever or pain. and straight to ER if unable to lower temp less than 101.0 after medication given *Warm salt water gargles may help to soothe the throat *Throat Lozenges *Warm fluids like tea with honey may help to soothe the throat *Sleep elevated *Humidifier/Vaporizer *Flonase 2 sprays in each nostril daily but be aware that it may take 2-3 days before you notice improvement Take medication as prescribed Return if needed Follow up IMMEDIATELY for new or worsening symptoms or no Noticeable improvement over the next 48-72 hours. 911 for difficulty breathing or swallowing Prescriptions: Amoxicillin/Potassium Clav [Augmentin 875-125 Tablet] 1 tab PO Q12H 10 Days #20 tab Transmission Status: Pending to [facility] [place] predniSONE [Deltasone 10mg tablet] 10 mg PO BID 5 Days #10 tab Transmission Status: Pending to [facility] - [place] Rx Fluticasone Propionate [Flonase 50mcg nasal spray 16gm] 1 spr NS DAILY #1 each Transmission Status: Pending to [facility] - [place] Rx Referrals: Cameron Schreiber MD [Primary Care Provider] - As needed Time of Disposition: 17:17 Medical Decision Making - Frandy Inquiry Pt receiving controlled substance: No Frandy was queried for this patient: No Vital Signs: 08/07/21 16:39 Temperature 97.9 F Temperature Source Oral Pulse Rate [Left] 82 Respiratory Rate 16 Blood Pressure [Right Arm] 141/86 H Blood Pressure Mean [Right Arm] 104 02 Sat by Pulse Oximetry 98 [facility] [place] - General Stated complaint: ears Time Seen by Provider: 08/07/21 17:07 Mode of Arrival: Ambulatory Source of Information: Patient Limitations: No Limitations Description of Symptoms (Recalled from Triage Doc. by RN): pt c/o sneezing, watery eyes and bilateral ear infections. x2 days HEENT Symptoms (Recalled from RN notes): Yes (water eyes, sneezing a bilateral ear pain) Resp Symptoms (Recalled from RN notes): No Skin Symptoms (Recalled from RN notes): No MS Symptoms (Recalled from RN notes): No Functional Status (Recalled from RN notes): na - History of Present Illness Provider Complaint: Patient states that she has been having bilateral ear pain, sinus pain an pressure along with nasal drainage and scratchy throat for a couple of days States that she feels like her ears and sinuses are infected so she came in to get checked - Related Data Home Medications Medication Instructions Recorded Confirmed Aspirin 81 mg PO DAILY 01/12/18 11/22/19 Pantoprazole Sodium [Protonix 40mg 40 mg PO DAILY 01/12/18 11/22/19 tablet] Pravastatin Sodium 10 mg PO DAILY 01/12/18 11/22/19 Triamterene/Hydrochlorothiazid 1 tab PO DAILY 04/11/19 11/22/19 [Maxzide-25 tablet] lisinopril 10 mg tablet 10 mg PO tab 11/22/19 11/22/19 Previous Rx's Medication Instructions Recorded Fluticasone Propionate [Flonase 1 spr NS DAILY 14 Days #1 bottle 09/19/19 50mcg nasal spray 16gm] meloxicam 7.5 mg tablet 7.5 mg PO DAILY 30 Days #30 tab 11/22/19 Meclizine HCl [Antivert 25mg 25 mg PO BID PRN #20 tab 05/10/20 tablet] Meclizine HCl [Antivert 25mg 25 mg PO TIDP PRN #15 tab 08/04/20 tablet] Promethazine HCl [Phenergan 25mg 25 mg PO TIDP PRN #15 tab 08/04/20 tab] Amoxicillin [Amoxicillin 875MG 875 mg PO Q12H #20 tab 09/01/20 Tab] Fluticasone Propionate [Flonase 1 spr NS DAILY 30 Days #1 bottle 09/01/20 50mcg nasal spray 16g
[2021-08-07 17:21] VITALS: BP 141/86; PULSE 82; RESP 16; TEMP 36.6
== END 2021-08-07 17:22 | disposition home or self-care (01) ==
PROVIDERS: Emergency Provider Nurse Practitioner; PCP Family Medicine
DX: H66.93 Otitis media, unspecified, bilateral (principal); K21.9 Gastro-esophageal reflux disease without esophagitis; I10 Essential (primary) hypertension; E78.5 Hyperlipidemia, unspecified; Z88.2 Allergy status to sulfonamides
CPT/HCPCS: 99202; G0463

== ENCOUNTER → 2021-08-10 16:05 | Outpatient (CLI) | payer BC, SELFPAY | PROVIDERS: PCP Family Medicine; Visit Provider Nurse Practitioner | DX: Z20.822 Contact with and (suspected) exposure to COVID-19 (principal) | CPT/HCPCS: C9803; U0003; U0005 ==

== ENCOUNTER 2021-10-11 13:16 | Emergency (ER) | payer BC, SELFPAY ==
[2021-10-11 14:20] VITALS: BP 140/78; PULSE 91; RESP 16; TEMP 37; O2SAT 98; BMI 34.7
--- NOTE | 2021-10-11 14:24 | XR_ITS ---
PROCEDURE: XR KUB CLINICAL INDICATION: CONTIPATION COMPARISON: No exams were available for comparison FINDINGS: Gas pattern-The bowel gas pattern is unremarkable. No obvious obstruction. Calcifications-No abnormal calcifications are evident. No obvious renal or ureteral calculi. Bones-No acute bony anomalies evident. Prior cholecystectomy IMPRESSION: No acute findings. Dictated by: Rd Mercer MD 10/11/2021 14:57 Rd Mercer MD in [place] 10/11/2021 14:57
--- NOTE | 2021-10-11 15:15 | HMH.EDUTC ---
[facility] [place] Clinical Impression: Constipation Qualifiers: Constipation type: unspecified constipation type Qualified Code(s): K59.00 - Constipation, unspecified Disposition: Home, Self-Care Condition on Discharge: Good Instructions: DI for Muscle Spasm, DI for Constipation, Constipation Additional Instructions: *Ibuprofen nereida 6 hours with meal as needed for pain/inflammation if you can take it for back and body aches *Not additional anti-inflammatory like motrin, aleve, advil with the above amount of ibuprofen. You can still take Tylenol every 4 hours as needed if you need something else for pain *Ice 20 minutes every 2 hours for the first 48 hours after the initial injury followed by moist heat every 20 minutes 3-4 times a day to affected area *Over the counter Muscle rubs like biofreeze may help with muscle aches and pain *Keep this area active, no movement leads to more stiffness, However take it easy and avoid heavy lifting pushing or pulling *Follow up with you family doctor if no improvement for further treatment Return if needed Straight to ER if any life threatening symptoms Warm soaks in warm water and epson salt may help muscle pain Referrals: Cameron Schreiber MD [Primary Care Provider] - As needed Time of Disposition: 15:26 Medical Decision Making - Frandy Inquiry Pt receiving controlled substance: No Frandy was queried for this patient: No Vital Signs: 10/11/21 14:20 Temperature 98.6 F Temperature Source Oral Pulse Rate [Right Brachial] 91 H Respiratory Rate 16 Blood Pressure [Right Arm] 140/78 Blood Pressure Mean [Right Arm] 98 Blood Pressure Source [Right Arm] Automatic Cuff Blood Pressure Position [Right Arm] Sitting 02 Sat by Pulse Oximetry 98 Oxygen Delivery Method Room Air - Radiology Data #1 Image(s): KUB Image Reviewed: Yes I have reviewed radiologist's interpretation IMPRESSION: No acute findings. Medical Decision Narrative: Discussed with patient and recommended transfer to the ED for further evaluation and work up for abdominal pain and patient declined State that she will go home and try some Magnesium Citrate and enema and return if no improvement [facility] [place] - General Stated complaint: back pain and abd pain, no accident Time Seen by Provider: 10/11/21 15:16 Mode of Arrival: Ambulatory Source of Information: Patient Limitations: No Limitations Description of Symptoms (Recalled from Triage Doc. by RN): PATIENT C/O ABDOMINAL PAIN WITH NO BOWEL MOVEMENT X 4 DAYS. ALSO C/O BACK AND NECK PAIN AFTER PUTTING UP THE [place] TREE LAST NIGHT HEENT Symptoms (Recalled from RN notes): No Resp Symptoms (Recalled from RN notes): No Skin Symptoms (Recalled from RN notes): No MS Symptoms (Recalled from RN notes): Yes Functional Status (Recalled from RN notes): WNL - History of Present Illness Provider Complaint: Patient states that she has been feeling achy in her back and neck area after putting up [place] tree last night and thinks she may have just over did it States that also she has been feeling constipated and has took some mirlax for the last 4 days and it hasnt helped her have a bowel movement States that she feels like she is constipated but it is still up kind of high and makes her cramp and her belly hurt when she bears down so she came in to get checked to make sure she didnt have a blockage or something states that she is scheduled for colonoscopy in Nov - Related Data Home Medications Medication Instructions Recorded Confirmed Aspirin 81 mg PO DAILY 01/12/18 10/08/21 Pantoprazole Sodium [Protonix 40mg 40 mg PO DAILY 01/12/18 10/08/21 tablet] Pravastatin Sodium 10 mg PO DAILY 01/12/18 10/08/21 Triamterene/Hydrochlorothiazid 1 tab PO DAILY 04/11/19 10/08/21 [Maxzide-25 tablet] lisinopril 10 mg tablet 10 mg PO tab 11/22/19 10/08/21 Previous Rx's Medication Instructions Recorded Fluticasone Propionate [Flonase 1 spr NS DAILY #1 each 08/07/21 50mcg
[2021-10-11 15:47] VITALS: BP 140/78; PULSE 91; RESP 16; TEMP 37; O2SAT 98
== END 2021-10-11 16:01 | disposition home or self-care (01) ==
PROVIDERS: Emergency Provider Nurse Practitioner; PCP Family Medicine
DX: K59.00 Constipation, unspecified (principal); M54.50 Low back pain, unspecified; M54.2 Cervicalgia; K21.9 Gastro-esophageal reflux disease without esophagitis; I10 Essential (primary) hypertension; E78.5 Hyperlipidemia, unspecified; Z79.899 Other long term (current) drug therapy
CPT/HCPCS: 74018; 99202; G0463

== ENCOUNTER 2021-12-18 13:37 | Emergency (ER) | payer BC, SELFPAY ==
[2021-12-18] VITALS (10 sets, daily range): BP systolic 129–158; BP diastolic 69–81; PULSE 62–84; RESP 16–18; TEMP 36.9–37; O2SAT 97–100; BMI 34.7
--- NOTE | 2021-12-18 13:33 | ECG_ITS ---
APPROVED REPORT Exam: Resting ECG HR:84 bpm ECG Measurements Heart Rate 84 AXES NE 148 P 43 QRSd 95 QRS -27 QT 401 T 13 QTc 442 Conclusion SINUS RHYTHM BORDERLINE LEFT AXIS DEVIATION [QRS AXIS < -20] BORDERLINE ECG UNCONFIRMED REPORT Electronically signed by : Cameron Banerjee MD 12/18/2021 17:43:24
--- NOTE | 2021-12-18 13:39 | XR_ITS ---
FINAL REPORT CLINICAL HISTORY: chest pain, chest tightness, soa, hx of covid last year FINDINGS: The heart size is normal. The mediastinum is normal. There is no focal infiltrate or edema. There are no pleural effusions. There is no pneumothorax. There is no osseous abnormality. IMPRESSION: No acute cardiopulmonary process Reviewed, Interpreted and Dictated by Marco Antonio Sams III, MD Transcribed by Tato Grissom Authenticated by Marco Antonio Sams III, MD on 12/18/2021 02:24:56 PM [facility]
[2021-12-18 13:49] LABS: Basophils # 0.2 K/mm3 (0-0.2); Basophils % 2.7 % (0.1-2.0); Eosinophils # 0.7 K/mm3 (0.0-0.4); Eosinophils % 9.3 % (0.1-12.0); Hematocrit 47.1 % (37.0-47.0); Hemoglobin 15.4 g/dL (12.2-16.2); Lymphocytes # 3.2 K/mm3 (0.7-4.5); Lymphocytes % 45.9 % (10-50); Mean Corpuscular HGB Conc 32.8 g/dL (31.8-35.4); Mean Corpuscular Hemoglobin 32.8 pg (27.0-31.2); Mean Platelet Volume 8.1 fl (7.4-10.4); Monocytes # 0.4 K/mm3 (0.1-1.0); Monocytes % 5.5 % (1.7-9.3); Neutrophils # 2.5 K/mm3 (1.8-7.8); Neutrophils % 36.5 % (37.0-80.0); Platelet Count 333 K/mm3 (142-424); Red Blood Count 4.71 M/mm3 (4.20-5.40); Red Cell Distribution Width 12.9 % (11.5-17.5)
[2021-12-18 14:02] LABS: Blood Urea Nitrogen 17 mg/dl (7-17); Calcium 9.9 mg/dl (8.4-10.2); Carbon Dioxide 29 mmol/L (22.0-30.0); Chloride 99 mmol/L (98-107); Creatinine Clearance Estimated 103 mL/min (50-200); Estimated Glomerular Filt Rate 73 ml/min (>60); GFR (African American) 89 ML/MIN (>60); Glucose 92 mg/dl (74-100); Sodium 138 mmol/L (136-145)
[2021-12-18 14:14] LABS: Troponin I < 0.01 ng/ml (0.00-0.034)
--- NOTE | 2021-12-18 15:29 | HMH.EDGENADL ---
ED Disposition Clinical Impression: Atypical chest pain Disposition: Home, Self-Care Condition on Discharge: Good Instructions: DI for Atypical Chest Pain Additional Instructions: Additional instructions for CHEST PAIN: See your physician as soon as possible for further evaluation. Return immediately if worsening chest pain, vomiting, shortness of breath, fever, coughing of blood. Referrals: Cameron Schreiber MD [Primary Care Provider] - - Critical Care Critical Care Time: No Attestation: On 12/18/21, the high probability of a clinically significant, sudden or life threatening deterioration of the following system(s) required my full and direct attention, intervention and personal management. The time I documented below is in addition to time spent performing reported procedures but includes the following listed in this critical care notation. Medical Decision Making - Frandy Inquiry Pt receiving controlled substance: No Vital Signs: 12/18/21 13:38 12/18/21 14:00 12/18/21 14:30 Temperature 98.4 F Temperature Source Oral Pulse Rate 69 63 Pulse Rate [Radial] 84 Respiratory Rate 16 18 18 Blood Pressure 145/80 H 133/76 Blood Pressure [Right Arm] 145/80 H Blood Pressure Mean [Right Arm] 101 Blood Pressure Source Automatic Cuff Automatic Cuff Blood Pressure Position Sitting Sitting Blood Pressure Position [Right Arm] Sitting 02 Sat by Pulse Oximetry 98 98 100 Oxygen Delivery Method Room Air Room Air Room Air 12/18/21 15:00 12/18/21 15:30 Temperature Temperature Source Pulse Rate 68 63 Pulse Rate [Radial] Respiratory Rate 18 18 Blood Pressure 129/78 142/73 H Blood Pressure [Right Arm] Blood Pressure Mean [Right Arm] Blood Pressure Source Automatic Cuff Automatic Cuff Blood Pressure Position Sitting Sitting Blood Pressure Position [Right Arm] 02 Sat by Pulse Oximetry 99 98 Oxygen Delivery Method Room Air Room Air - Lab Data Lab Results 12/18/21 13:40: WBC 7.0, RBC 4.71, Hgb 15.4, Hct 47.1 H, MCV 100.0 H, MCH 32.8 H, MCHC 32.8, RDW 12.9, Plt Count 333, MPV 8.1, Neut % (Auto) 36.5 L, Lymph % (Auto) 45.9, Clare % (Auto) 5.5, Eos % (Auto) 9.3, Baso % (Auto) 2.7 H, Neut # (Auto) 2.5, Lymph # (Auto) 3.2, Clare # (Auto) 0.4, Eos # (Auto) 0.7 H, Baso # (Auto) 0.2 12/18/21 13:40: Sodium 138, Potassium 4.0, Chloride 99, Carbon Dioxide 29, Anion Gap 14.0, BUN 17, Creatinine 0.80, Estimated Creat Clear 103, Estimated GFR 73, Est GFR ( Amer) 89, Glucose 92, Calcium 9.9, Troponin I < 0.01 12/18/21 13:40: D-Dimer 0.59 H 12/18/21 16:50: Troponin I < 0.01 Result diagrams: 12/18/21 13:40 12/18/21 13:40 Orders (Tests/Meds): ED MEDICATIONS Generic Name Dose Route Start Last Admin Trade Name Freq PRN Reason Stop Dose Admin Sodium Chloride 10 ml 12/18/21 13:55 Sodium Chloride 0.9% 10ml Flush Syringe IV 01/17/22 13:54 NEEDED PRN Maintain IV Site Discontinued Medications Generic Name Dose Route Start Last Admin Trade Name Freq PRN Reason Stop Dose Admin Aspirin 243 mg 12/18/21 13:47 12/18/21 13:52 Aspirin 81mg Chewable Tablet PO 12/18/21 13:48 243 mg ONCE ONE Administration Iopamidol 70 ml 12/18/21 16:48 12/18/21 16:49 Iopamidol-370 (76%);100ml Bottle IV 12/18/21 16:49 70 ml ONCE ONE Administration Sodium Chloride 50 ml 12/18/21 16:48 12/18/21 16:49 0.9 % Sodium Chloride 50 Ml Vial IV 12/18/21 16:49 50 ml ONCE ONE Administration Sodium Chloride 10 ml 12/18/21 16:48 12/18/21 16:49 Sodium Chloride 0.9% 10ml Syr (Rad Only) IV 12/18/21 16:49 10 ml ONCE ONE Administration ORDERS Category Date Time Status Troponin I Q3H Lab 12/18/21 19:45 Ordered - Radiology Data #1 Image(s): Chest Image Reviewed: Yes I have reviewed radiologist's interpretation Procedure(s): XR chest portable Accession Number(s): [id number] cc: Marco Antonio Sams MD; Cameron Schreiber MD~ FINAL REPORT CLINICAL HISTO
[2021-12-18 16:13] LABS: D-Dimer 0.59 ug/mL (0.0-0.5)
--- NOTE | 2021-12-18 16:30 | CT_ITS ---
PROCEDURE INFORMATION: Exam: CTA Chest With Contrast Exam date and time: 12/18/2021 4:30 PM Age: 61 years old Clinical indication: Pain; Chest pressure; Additional info: Cp, elev d-dimer TECHNIQUE: Imaging protocol: Computed tomographic angiography of the chest with contrast. 3D rendering (Not supervised by radiologist): MIP and/or 3D reconstructed images were created by the technologist. Radiation optimization: All CT scans at this facility use at least one of these dose optimization techniques: automated exposure control; mA and/or kV adjustment per patient size (includes targeted exams where dose is matched to clinical indication); or iterative reconstruction. Contrast material: ISOVUE 370; Contrast volume: 70 ml; Contrast route: INTRAVENOUS (IV); COMPARISON: CR XR CHEST PORTABLE 12/18/2021 1:46 PM FINDINGS: Pulmonary arteries: Normal. No pulmonary emboli. Aorta: Unremarkable. No aortic aneurysm. No aortic dissection. Lungs: Unremarkable. No consolidation. No masses. Pleural spaces: Unremarkable. No pneumothorax. No pleural effusion. Heart: Mild cardiac enlargement. Lymph nodes: Unremarkable. No enlarged lymph nodes. Liver: There is a diffuse decrease in hepatic parenchymal density consistent with fatty infiltration. Gallbladder and bile ducts: Cholecystectomy. Bones/joints: Unremarkable. No acute fracture. Soft tissues: Unremarkable. IMPRESSION: 1. Mild cardiac enlargement. 2. No PE. 3. Fatty liver.
[2021-12-18 17:25] LABS: Troponin I < 0.01 ng/ml (0.00-0.034)
== END 2021-12-18 18:37 | disposition home or self-care (01) ==
PROVIDERS: Emergency Provider Emergency Medicine; PCP Family Medicine
DX: R07.89 Other chest pain (principal); R00.2 Palpitations; K21.9 Gastro-esophageal reflux disease without esophagitis; E78.5 Hyperlipidemia, unspecified; I10 Essential (primary) hypertension; Z88.2 Allergy status to sulfonamides; Z79.899 Other long term (current) drug therapy
CPT/HCPCS: 71045; 71275; 80048; 84484; 85025; 85378; 93005; 99283; Q9967

== ENCOUNTER → 2022-07-03 10:56 | Outpatient (CLI) | payer BC, SELFPAY | PROVIDERS: PCP Nurse Practitioner Family; Visit Provider Nurse Practitioner Family | DX: K52.9 Noninfective gastroenteritis and colitis, unspecified (principal); A04.72 Enterocolitis due to Clostridium difficile, not specified as recurrent | CPT/HCPCS: 87045; 87177 ==

== ENCOUNTER → 2022-07-12 11:27 | Outpatient (CLI) | payer BC, SELFPAY ==
[2022-07-12 12:59] LABS: Adenovirus F 40/41, stool Not Detected (NotDetected); Astrovirus Not Detected (NotDetected); Campylobacter Not Detected (NotDetected); Cryptosporidium Not Detected (NotDetected); Cyclospora Cayetanesis Not Detected (NotDetected); Entamoeba histolytica Not Detected (NotDetected); Enteroaggregative E coli Not Detected (NotDetected); Enteropathogenic E coli Not Detected (NotDetected); Enterotoxigenic E coli Not Detected (NotDetected); Giardia lamblia Not Detected (NotDetected); Norovirus Not Detected (NotDetected); Plesimonas Shigalloides, PCR Not Detected (NotDetected); Rotavirus A Not Detected (NotDetected); Salmonella, PCR Not Detected (NotDetected); Sapovirus Not Detected (NotDetected); Shiga-like toxin E coli Not Detected (NotDetected); Shigella Enterovasive E coli Not Detected (NotDetected); Vibrio Cholerae Not Detected (NotDetected); Vibrio, PCR Not Detected (NotDetected); Yersinia Entercolitica, PCR Not Detected (NotDetected)
--- NOTE | 2022-07-12 13:41 | CT_ITS ---
FINAL REPORT CLINICAL HISTORY: ABD PAIN,MUCUS IN STOOL,DIARRHEA,NAUSEA,BLOATING FINDINGS: CT OF THE ABDOMEN AND PELVIS WITH CONTRAST Axial CT images of the abdomen and pelvis were obtained after the administration of oral and iv contrast. Coronal reformatted images were also obtained and reviewed.This study was performed with techniques to keep radiation doses as low as reasonably achievable (ALARA). Individualized dose reduction techniques using automated exposure control or adjustment of mA and/or kV according to the patient's size were employed. Abdomen: The lung bases are clear. The heart is normal in size. The liver has an unremarkable appearance, without evidence of mass or biliary ductal dilatation. Postoperative changes are seen from cholecystectomy. The spleen is unremarkable. No adrenal mass is present. The pancreas has an unremarkable appearance. There is a less than 1 cm cyst in the lateral left kidney. The aorta is normal in caliber. There is no free fluid or adenopathy. Pelvis: The appendix is normal. There is mucosal thickening of the cecum and terminal ileum with adjacent stranding consistent with inflammation. The urinary bladder is unremarkable. There has been hysterectomy. There is a 3 cm cystic mass in the right ovary. There is descending and sigmoid colon diverticulosis. There is mild wall thickening of the descending and sigmoid colon of uncertain significance that may represent mild colitis. IMPRESSION: Mucosal thickening and adjacent inflammation of the cecum and terminal ileum. 3 cm right ovarian cyst. Recommend follow-up ultrasound. Mild wall thickening of the descending and sigmoid colon of uncertain significance may represent mild colitis. Normal appendix. Reviewed, Interpreted and Dictated by Marco Antonio Sams III, MD Transcribed by Tato Grissom Authenticated and [facility]
[2022-07-12 13:51] LABS: Chloride 95 mmol/L (98-107); Sodium 134 mmol/L (136-145)
[2022-07-12 13:52] LABS: Potassium 4.8 mmoL/L (3.5-5.1)
[2022-07-12 13:54] LABS: Alanine Aminotransferase 42 U/L (12-78); Albumin Level 4.6 g/dl (3.5-5.0); Albumin/Globulin Ratio 1.6 (1.1-1.8); Alkaline Phosphatase 103 U/L (38-126); Amylase 66 U/L (30-110); Anion Gap 12.8 mEq/L (5-15); Aspartate Amino Transferase 41 U/L (14-36); Bilirubin,Total 0.8 mg/dl (0.2-1.3); Blood Urea Nitrogen 16 mg/dl (7-17); Carbon Dioxide 31 mmol/L (22.0-30.0); Estimated Glomerular Filt Rate 64 ml/min (>60); GFR (African American) 78 ML/MIN (>60); Globulin 2.8 g/dL (1.3-3.2); Lipase 144 U/L (23-300); Total Protein,Serum 7.4 g/dl (6.3-8.2)
[2022-07-12 14:01] LABS: Calcium 10.1 mg/dl (8.4-10.2); Glucose 93 mg/dl (74-100)
[2022-07-12 14:16] LABS: Basophils # 0.1 K/mm3 (0-0.2); Basophils % 0.9 % (0.1-2.0); Eosinophils # 0.3 K/mm3 (0.0-0.4); Eosinophils % 2.9 % (0.1-12.0); Hematocrit 46.5 % (37.0-47.0); Hemoglobin 15.3 g/dL (12.2-16.2); Lymphocytes # 2.6 K/mm3 (0.7-4.5); Lymphocytes % 26.7 % (10-50); Mean Corpuscular HGB Conc 32.9 g/dL (31.8-35.4); Mean Corpuscular Hemoglobin 31.8 pg (27.0-31.2); Mean Corpuscular Volume 96.8 fl (81-99); Mean Platelet Volume 8.3 fl (7.4-10.4); Monocytes # 0.7 K/mm3 (0.1-1.0); Neutrophils # 6.2 K/mm3 (1.8-7.8); Neutrophils % 62.4 % (37.0-80.0); Platelet Count 364 K/mm3 (142-424); Red Blood Count 4.81 M/mm3 (4.20-5.40); Red Cell Distribution Width 12.8 % (11.5-17.5); White Blood Count 9.9 K/mm3 (4.8-10.8)
[2022-07-12 20:26] LABS: Clostridium Difficile A/B, PCR Detected (NotDetected)
== END ==
PROVIDERS: PCP Nurse Practitioner Family; Visit Provider Nurse Practitioner Family
DX: R10.84 Generalized abdominal pain (principal); R19.5 Other fecal abnormalities; R19.7 Diarrhea, unspecified; A04.72 Enterocolitis due to Clostridium difficile, not specified as recurrent
CPT/HCPCS: 36415; 74177; 80053; 82150; 83690; 85025; 87507; Q9967

== ENCOUNTER → 2022-08-13 11:00 | Outpatient (CLI) | payer BC, OTHER, SELFPAY ==
--- NOTE | 2022-08-13 11:00 | US_ITS ---
FINAL REPORT CLINICAL HISTORY: rt. ovarian cyst FINDINGS: Transvaginal sonographic images of the pelvis was obtained. The uterus is surgically absent. The right ovary measures 3.4 x 2.7 x 2.8 cm. There is a 3.4 cm probable cyst in the right ovary. The left ovary small measuring 1.3 x 1.1 x 0.9 cm. No fluid is identified IMPRESSION: Probable right ovarian cyst. Reviewed, Interpreted and Dictated by Marco Antonio Sams III, MD Transcribed by Soraya Sheppard Authenticated and [facility]
[2022-08-14 11:57] LABS: CA 19-9 16 U/mL (0-35); Cancer Antigen (CA) 125 18.4 U/mL (0.0-38.1)
== END ==
PROVIDERS: PCP Nurse Practitioner Family; Visit Provider Obstetrics & Gynecology
DX: N83.209 Unspecified ovarian cyst, unspecified side (principal)
CPT/HCPCS: 36415; 76830; 86316

== ENCOUNTER 2022-09-11 17:37 | Emergency (ER) | payer BC, SELFPAY ==
[2022-09-11 19:17] VITALS: BP 145/87; PULSE 103; RESP 18; TEMP 37.1; O2SAT 95; BMI 34.7
[2022-09-11 19:25] LABS: UTC Influenza A Antigen Negative (Negative); UTC Influenza B Antigen Negative (Negative)
--- NOTE | 2022-09-11 19:31 | EXP.UTC ---
Discharge Plan Disposition Patient Disposition: Home, Self-Care Condition: Good Prescriptions Prescriptions: New amoxicillin 875 mg tablet 875 mg PO BID Qty: 20 0RF prednisone 20 mg tablet 20 mg PO BID 5 Days Qty: 10 0RF No Action lisinopril 10 mg tablet 10 mg PO Label Comments: TAKE 1 2 (ONE HALF) TABLET BY MOUTH ONCE DAILY FOR 30 DAYS pravastatin 10 MG tablet 10 mg PO DAILY Label Comments: pantoprazole 40 MG tablet,delayed release (DR/EC) 40 mg PO DAILY aspirin 81 MG tablet,chewable 81 mg PO DAILY triamterene-hydrochlorothiazid 37.5-25 tablet 1 tab PO DAILY Referrals Follow up/Referrals: Leyla Burch APRN [Primary Care Provider] - See instructions Activity Restrictions/Add. Instructions Additional Instructions/Restrictions: *Monitor Temp, Over the counter Motrin or Tylenol as directed/as needed Tylenol every 4 hours and Motrin every 6 hours (as long as your family doctor has told you that you can take it) for fever or pain. and straight to ER if unable to lower temp less than 101.0 after medication given *Warm salt water gargles may help to soothe the throat *Throat Lozenges? *Warm fluids like tea with honey may help to soothe the throat? *Sleep elevated *Humidifier/Vaporizer Take medication as prescribed Follow up IMMEDIATELY for new or worsening symptoms or no Noticeable improvement over the next 48-72 hours. 911 for difficulty breathing or swallowing Clinical Impressions Clinical Impression: Otitis media Instructions Patient Instructions: Middle Ear Infection, Amoxicillin, Prednisone Discharge ED Provider: Iona Baker [facility] [place] HPI General Stated complaint: Bilateral earache,Cough Mode of Arrival: Ambulatory Source of Information: Patient Limitations: No Limitations Time Seen by Provider: 09/11/22 19:31 Description of Symptoms (Recalled from Triage Doc. by RN): ear pain, cough and headache for prior 3 days HEENT Symptoms (Recalled from RN notes): Yes Resp Symptoms (Recalled from RN notes): Yes Skin Symptoms (Recalled from RN notes): No MS Symptoms (Recalled from RN notes): No Functional Status (Recalled from RN notes): na History of Present Illness Provider Complaint: Patient states that she has been having bilateral ear pain, sinus congestion and drainage along with cough and headache for the last 3-4 days that has got worse States that she is having pressure like feeling behind her eyes and today she was still not feeling well so she came in Related Data Home Medications Medication Instructions Recorded Confirmed aspirin 81 mg chewable tablet 81 mg PO DAILY Blood thinner 01/12/18 08/27/22 pantoprazole 40 mg tablet,delayed 40 mg PO DAILY STOMACH 01/12/18 08/27/22 release pravastatin 10 mg tablet 10 mg PO DAILY Cholesterol 01/12/18 08/27/22 triamterene 37.5 1 tab PO DAILY HTN 04/11/19 08/27/22 mg-hydrochlorothiazide 25 mg tablet lisinopril 10 mg tablet 10 mg PO 11/22/19 08/27/22 Previous Rx's Medication Instructions Recorded amoxicillin 875 mg tablet 875 mg PO BID #20 tabs 09/11/22 prednisone 20 mg tablet 20 mg PO BID 5 days #10 tabs 09/11/22 Allergies Allergy/AdvReac Type Severity Reaction Status Date / Time Sulfa (Sulfonamide Allergy Unknown Rash Verified 08/27/22 09:48 Antibiotics) [SULFA (SULFONAMIDE ANTIBIOTICS)] tiotropium Allergy Unknown Rash Verified 08/27/22 09:48 [From [facility] WITH HANDIHALER] Worker's Comp Is this a Worker's Comp case?: No PFSH PFSH Medical History Cyst of ovary Surgical History Hx of cholecystectomy Hx of hysterectomy Hx of tonsillectomy Hx of tubal ligation Social History Smoking Status: Never smoker alcohol intake: current current occupational status: othe
[2022-09-11 19:38] VITALS: BP 145/87; PULSE 103; RESP 18; TEMP 37.1; O2SAT 95
[2022-09-11 19:51] LABS: Adenovirus,PCR Not Detected (NotDetected); Bordetella Pertussis Not Detected (NotDetected); Chlamydophila Pneumoniae, PCR Not Detected (NotDetected); Coronavirus 19, PCR Not Detected (NotDetected); Coronavirus 229E Not Detected (NotDetected); Coronavirus NL63 Not Detected (NotDetected); Coronavirus OC43 Not Detected (NotDetected); Coronovirus HKU1,PCR Not Detected (NotDetected); Human Metapneumovirus Not Detected (NotDetected); Influenza A, PCR Not Detected (NotDetected); Influenza AH1, 2009 Not Detected (NotDetected); Influenza AH1, PCR Not Detected (NotDetected); Influenza AH3,PCR Not Detected (NotDetected); Influenza B, PCR Not Detected (NotDetected); Mycoplasma Pneumoniae, PCR Not Detected (NotDetected); Parainfluenza 1, PCR Not Detected (NotDetected); Parainfluenza 2, PCR Not Detected (NotDetected); Parainfluenza 3, PCR Not Detected (NotDetected); Parainfluenza 4, PCR Not Detected (NotDetected); Respiratory Syncytial Virus Not Detected (NotDetected); Rhinovirus/Enterovirus Not Detected (NotDetected)
== END 2022-09-11 19:50 | disposition home or self-care (01) ==
PROVIDERS: Emergency Provider Nurse Practitioner; PCP Nurse Practitioner Family
DX: H66.93 Otitis media, unspecified, bilateral (principal); R05.9 Cough, unspecified; R51.9 Headache, unspecified; R00.0 Tachycardia, unspecified; N83.209 Unspecified ovarian cyst, unspecified side; Z20.822 Contact with and (suspected) exposure to COVID-19; Z79.52 Long term (current) use of systemic steroids; Z79.82 Long term (current) use of aspirin; Z79.899 Other long term (current) drug therapy; Z88.2 Allergy status to sulfonamides; Z88.8 Allergy status to other drugs, medicaments and biological substances
CPT/HCPCS: 87581; 87632; 87798; 87804; 99213; C9803; G0463; U0003; U0005

== ENCOUNTER 2022-11-02 09:47 | Emergency (ER) | payer BC, OTHER, SELFPAY ==
[2022-11-02 10:30] VITALS: BP 129/75; PULSE 87; RESP 18; TEMP 36.7; O2SAT 99; BMI 31.3
[2022-11-02 10:50] VITALS: BP 129/75; PULSE 87; RESP 18; TEMP 36.7; O2SAT 99
--- NOTE | 2022-11-02 10:52 | EXP.UTC ---
Discharge Plan Disposition Patient Disposition: Home, Self-Care Condition: Good Prescriptions Prescriptions: New benzonatate 100 mg capsule 100 mg PO TID PRN (Reason: cough) Qty: 30 0RF No Action lisinopril 10 mg tablet 10 mg PO Label Comments: TAKE 1 2 (ONE HALF) TABLET BY MOUTH ONCE DAILY FOR 30 DAYS pravastatin 10 MG tablet 10 mg PO DAILY Label Comments: pantoprazole 40 MG tablet,delayed release (DR/EC) 40 mg PO DAILY aspirin 81 MG tablet,chewable 81 mg PO DAILY amoxicillin 875 mg tablet 875 mg PO BID Qty: 20 0RF prednisone 20 mg tablet 20 mg PO BID 5 Days Qty: 10 0RF triamterene-hydrochlorothiazid 37.5-25 tablet 1 tab PO DAILY Referrals Follow up/Referrals: Leyla Burch APRN [Primary Care Provider] - See instructions Activity Restrictions/Add. Instructions Additional Instructions/Restrictions: *Monitor Temp, Over the counter Motrin or Tylenol as directed/as needed Tylenol every 4 hours and Motrin every 6 hours (as long as your family doctor has told you that you can take it) for fever or pain. and straight to ER if unable to lower temp less than 101.0 after medication given *Warm salt water gargles may help to soothe the throat *Throat Lozenges? *Warm fluids like tea with honey may help to soothe the throat? *Sleep elevated *Humidifier/Vaporizer Follow up IMMEDIATELY for new or worsening symptoms or no Noticeable improvement over the next 48-72 hours. 911 for difficulty breathing or swallowing You were tested for today for Upper Respiratory Panel with COVID19 your test result should be back in the next 24-48 hours, you may check your results on the [facility] [employer] Health Portal Clinical Impressions Clinical Impression: URI (upper respiratory infection) Qualifiers: URI type: unspecified URI Qualified Code(s): J06.9 - Acute upper respiratory infection, unspecified Instructions Patient Instructions: Sore Throat, DI for Nasal Congestion Discharge ED [place] [facility] [place] General Stated complaint: congestion Mode of Arrival: Ambulatory Source of Information: Patient Limitations: No Limitations Time Seen by Provider: 11/02/22 10:52 Description of Symptoms (Recalled from Triage Doc. by RN): PATIENT C/O CONGESTION, EARS, AND COUGH X 3 DAYS HEENT Symptoms (Recalled from RN notes): Yes Resp Symptoms (Recalled from RN notes): Yes Skin Symptoms (Recalled from RN notes): No MS Symptoms (Recalled from RN notes): No Functional Status (Recalled from RN notes): WNL History of Present Illness Provider Complaint: Patient states that she has been having nasal congestion and pressure, pressure in her ears and cough for about 3 days States that today her throat was feeling better but still having sinus congestion so she came in Related Data Home Medications Medication Instructions Recorded Confirmed aspirin 81 mg chewable tablet 81 mg PO DAILY Blood thinner 01/12/18 08/27/22 pantoprazole 40 mg tablet,delayed 40 mg PO DAILY STOMACH 01/12/18 08/27/22 release pravastatin 10 mg tablet 10 mg PO DAILY Cholesterol 01/12/18 08/27/22 triamterene 37.5 1 tab PO DAILY HTN 04/11/19 08/27/22 mg-hydrochlorothiazide 25 mg tablet lisinopril 10 mg tablet 10 mg PO 11/22/19 08/27/22 Previous Rx's Medication Instructions Recorded amoxicillin 875 mg tablet 875 mg PO BID #20 tabs 09/11/22 prednisone 20 mg tablet 20 mg PO BID 5 days #10 tabs 09/11/22 benzonatate 100 mg capsule 100 mg PO TID PRN cough #30 caps 11/02/22 Allergies Allergy/AdvReac Type Severity Reaction Status Date / Time Sulfa (Sulfonamide Allergy Unknown Rash Verified 08/27/22 09:48 Antibiotics) [SULFA (SULFONAMIDE ANTIBIOTICS)] tiotropium Allergy Unknown Rash Verified 08/27/22 09:48 [From [facility] WITH HANDIHALER] Worker's Comp Is this a Worker's Comp case?: No [facility] Disclaimer: The information contained in this secti
[2022-11-02 10:54] LABS: Adenovirus,PCR Not Detected (NotDetected); Bordetella Pertussis Not Detected (NotDetected); Chlamydophila Pneumoniae, PCR Not Detected (NotDetected); Coronavirus 19, PCR Not Detected (NotDetected); Coronavirus 229E Not Detected (NotDetected); Coronavirus NL63 Not Detected (NotDetected); Coronavirus OC43 Not Detected (NotDetected); Coronovirus HKU1,PCR Not Detected (NotDetected); Human Metapneumovirus Not Detected (NotDetected); Influenza A, PCR Not Detected (NotDetected); Influenza AH1, 2009 Not Detected (NotDetected); Influenza AH1, PCR Not Detected (NotDetected); Influenza AH3,PCR Not Detected (NotDetected); Influenza B, PCR Not Detected (NotDetected); Mycoplasma Pneumoniae, PCR Not Detected (NotDetected); Parainfluenza 1, PCR Not Detected (NotDetected); Parainfluenza 2, PCR Not Detected (NotDetected); Parainfluenza 3, PCR Not Detected (NotDetected); Parainfluenza 4, PCR Not Detected (NotDetected); Respiratory Syncytial Virus Not Detected (NotDetected)
[2022-11-02 13:52] LABS: Rhinovirus/Enterovirus Detected (NotDetected)
== END 2022-11-02 11:29 | disposition home or self-care (01) ==
PROVIDERS: Emergency Provider Nurse Practitioner; PCP Nurse Practitioner Family
DX: J06.9 Acute upper respiratory infection, unspecified (principal); B34.1 Enterovirus infection, unspecified
CPT/HCPCS: 87581; 87632; 87798; 96372; 99212; C9803; G0463; J0696; U0003; U0005

== ENCOUNTER → 2022-11-08 13:43 | Outpatient (CLI) | payer BC, OTHER, SELFPAY ==
[2022-11-08 13:51] LABS: Adenovirus F 40/41, stool Not Detected (NotDetected); Astrovirus Not Detected (NotDetected); Campylobacter Not Detected (NotDetected); Clostridium Difficile A/B, PCR Not Detected (NotDetected); Cryptosporidium Not Detected (NotDetected); Cyclospora Cayetanesis Not Detected (NotDetected); Entamoeba histolytica Not Detected (NotDetected); Enteroaggregative E coli Not Detected (NotDetected); Enteropathogenic E coli Not Detected (NotDetected); Enterotoxigenic E coli Not Detected (NotDetected); Giardia lamblia Not Detected (NotDetected); Norovirus Not Detected (NotDetected); Plesimonas Shigalloides, PCR Not Detected (NotDetected); Rotavirus A Not Detected (NotDetected); Salmonella, PCR Not Detected (NotDetected); Sapovirus Not Detected (NotDetected); Shiga-like toxin E coli Not Detected (NotDetected); Shigella Enterovasive E coli Not Detected (NotDetected); Vibrio Cholerae Not Detected (NotDetected); Vibrio, PCR Not Detected (NotDetected); Yersinia Entercolitica, PCR Not Detected (NotDetected)
== END ==
PROVIDERS: PCP Nurse Practitioner Family; Visit Provider Nurse Practitioner Family
DX: R19.7 Diarrhea, unspecified (principal)
CPT/HCPCS: 87507

== ENCOUNTER → 2022-11-20 14:19 | Outpatient (CLI) | payer BC, OTHER, SELFPAY ==
--- NOTE | 2022-11-20 14:25 | US_ITS ---
FINAL REPORT CLINICAL HISTORY: Left axillary pain and swelling COMPARISON: None FINDINGS: ULTRASOUND SOFT TISSUES LEFT AXILLA Sonographic images of the area of interest were obtained. There are several borderline size left axillary nodes identified which appear consistent with reactive nodes. No mass or fluid collection is identified. IMPRESSION: Borderline size left axillary nodes consistent with reactive nodes. No mass or fluid collection identified. Reviewed, Interpreted and Dictated by Marco Antonio Sams III, MD Transcribed by Autumn Delgado Authenticated and [facility]
== END ==
PROVIDERS: PCP Nurse Practitioner Family; Visit Provider Nurse Practitioner Family
DX: M79.622 Pain in left upper arm (principal); M79.89 Other specified soft tissue disorders
CPT/HCPCS: 76882

== ENCOUNTER → 2023-01-14 08:07 | Outpatient (CLI) | payer BC, OTHER, SELFPAY ==
--- NOTE | 2023-01-14 08:38 | PC.NURSE ---
Pre and Post Spirometry completed. Pt does have a cough that causes her to almost gag. She was able to push through the coughing and did give a great effort on maneuvers. Pt began taking Lisinopril and is suspicious that the coughing is a side effect of the medicine. Albuterol 0.083% given via HHN, per protocol, Pt tolerated tx well.
== END ==
PROVIDERS: PCP Nurse Practitioner Family; Visit Provider Nurse Practitioner Family
DX: R05.1 Acute cough (principal)
CPT/HCPCS: 94060

== ENCOUNTER → 2023-02-20 11:29 | Outpatient (CLI) | payer BC, OTHER, SELFPAY ==
--- NOTE | 2023-02-20 11:33 | XR_ITS ---
FINAL REPORT CLINICAL HISTORY: SWELLING AND PAIN to left knee COMPARISON: None FINDINGS: Three views of the left knee reveal no evidence of fracture or dislocation. The bony alignment is normal. The joint spaces are preserved. There is a small joint effusion. No localized soft tissue abnormality is seen. IMPRESSION: Small joint effusion. No acute bony abnormality. Reviewed, Interpreted and Dictated by Marco Antonio Sams III, MD Transcribed by Autumn Delgado Authenticated and [facility]
== END ==
PROVIDERS: PCP Nurse Practitioner Family; Visit Provider Nurse Practitioner Family
DX: M25.562 Pain in left knee (principal); M25.462 Effusion, left knee
CPT/HCPCS: 73562

== ENCOUNTER 2023-03-31 09:15 | Emergency (ER) | payer BC, OTHER, SELFPAY ==
[2023-03-31 09:20] VITALS: BP 129/63; PULSE 66; RESP 20; TEMP 36.9; O2SAT 97; BMI 36.2
--- NOTE | 2023-03-31 09:47 | EXP.UTC ---
Discharge Plan Disposition Patient Disposition: Home, Self-Care Condition: Good Prescriptions Prescriptions: New amoxicillin 500 mg capsule 500 mg PO TID 10 Days Qty: 30 0RF triamcinolone acetonide 0.5 % cream 1 applic topical TID Qty: 30 0RF Rx Instructions: apply to rash as prescribed No Action lisinopril 10 mg tablet 10 mg PO Label Comments: TAKE 1 2 (ONE HALF) TABLET BY MOUTH ONCE DAILY FOR 30 DAYS pravastatin 10 MG tablet 10 mg PO DAILY Label Comments: pantoprazole 40 MG tablet,delayed release (DR/EC) 40 mg PO DAILY aspirin 81 MG tablet,chewable 81 mg PO DAILY amoxicillin 875 mg tablet 875 mg PO BID Qty: 20 0RF prednisone 20 mg tablet 20 mg PO BID 5 Days Qty: 10 0RF benzonatate 100 mg capsule 100 mg PO TID PRN (Reason: cough) Qty: 30 0RF triamterene-hydrochlorothiazid 37.5-25 tablet 1 tab PO DAILY Referrals Follow up/Referrals: Leyla Burch APRN [Primary Care Provider] - See instructions Activity Restrictions/Add. Instructions Additional Instructions/Restrictions: oatmeal bathes may help to dry the rash Calamine lotion may help with itching Use Triamcinolone as prescribed Return if needed Clinical Impressions Clinical Impression: Otitis media Instructions Patient Instructions: DI for Poison Martha Allergy, Poison Martha, Poison Eleanor, Poison Sumac, DI for Otitis Media (Middle Ear Infection)-Child Discharge ED Provider: Iona Baker [facility] [place] HPI General Stated complaint: Possible poison martha Mode of Arrival: Ambulatory Source of Information: Patient Limitations: No Limitations Time Seen by Provider: 03/31/23 09:47 Description of Symptoms (Recalled from Triage Doc. by RN): PATIENT C/O RASH TO INSIDE OF RIGHT WRIST AND BILATERAL EAR PAIN HEENT Symptoms (Recalled from RN notes): Yes Resp Symptoms (Recalled from RN notes): No Skin Symptoms (Recalled from RN notes): Yes MS Symptoms (Recalled from RN notes): No Functional Status (Recalled from RN notes): WNL History of Present Illness Provider Complaint: Patient states that she has been having biltateral ear pain for over a week and rash on her right forearm for about a week States that she has tried everything she knows for the rash on her forearm but not helped thinks it may be poison martha Related Data Home Medications Medication Instructions Recorded Confirmed aspirin 81 mg chewable tablet 81 mg PO DAILY Blood thinner 01/12/18 08/27/22 pantoprazole 40 mg tablet,delayed 40 mg PO DAILY STOMACH 01/12/18 08/27/22 release pravastatin 10 mg tablet 10 mg PO DAILY Cholesterol 01/12/18 08/27/22 triamterene 37.5 1 tab PO DAILY HTN 04/11/19 08/27/22 mg-hydrochlorothiazide 25 mg tablet lisinopril 10 mg tablet 10 mg PO 11/22/19 08/27/22 Previous Rx's Medication Instructions Recorded amoxicillin 875 mg tablet 875 mg PO BID #20 tabs 09/11/22 prednisone 20 mg tablet 20 mg PO BID 5 days #10 tabs 09/11/22 benzonatate 100 mg capsule 100 mg PO TID PRN cough #30 caps 11/02/22 amoxicillin 500 mg capsule 500 mg PO TID 10 days #30 caps 03/31/23 triamcinolone acetonide 0.5 % 1 applic topical TID #30 grams 03/31/23 topical cream Allergies Allergy/AdvReac Type Severity Reaction Status Date / Time Sulfa (Sulfonamide Allergy Unknown Rash Verified 08/27/22 09:48 Antibiotics) [SULFA (SULFONAMIDE ANTIBIOTICS)] tiotropium Allergy Unknown Rash Verified 08/27/22 09:48 [From SPIRIVA WITH HANDIHALER] Worker's Comp Is this a Worker's Comp case?: No [facility] Disclaimer: The information contained in this section may have been updated after the patient was seen, as this information can be updated by other users. Medical History (Updated 03/31/23 @ 10:00 by Iona Baker APRN) Anxiety Cyst of ovary Hyperlipidemia Hypertension Surgical History (Updated 03/31/23 @ 09:36 by Marily Yung RN) Hx of cardiac cath Hx of cholecystectomy Hx of
[2023-03-31 10:05] VITALS: BP 129/63; PULSE 66; RESP 20; TEMP 36.9; O2SAT 97
== END 2023-03-31 10:07 | disposition home or self-care (01) ==
PROVIDERS: Emergency Provider Nurse Practitioner; PCP Nurse Practitioner Family
DX: H66.91 Otitis media, unspecified, right ear (principal); R21 Rash and other nonspecific skin eruption; I10 Essential (primary) hypertension; E78.5 Hyperlipidemia, unspecified; F41.9 Anxiety disorder, unspecified
CPT/HCPCS: 99212; 99214; G0463

== ENCOUNTER 2023-05-10 18:12 | Emergency (ER) | payer BC, OTHER, SELFPAY ==
[2023-05-10 18:13] VITALS: BP 146/77; PULSE 63; RESP 18; TEMP 36.6; O2SAT 96; BMI 36.2
--- NOTE | 2023-05-10 18:24 | EXP.UTC ---
Discharge Plan Disposition Patient Disposition: Home, Self-Care Condition: Good Prescriptions Prescriptions: New cephalexin 500 mg capsule 500 mg PO QID Qty: 40 0RF mupirocin 2 % ointment 1 applic topical TID 7 Days Qty: 15 0RF methylprednisolone 4 mg Tablets,Dose Pack 4 mg PO DIRECTED Qty: 21 0RF No Action lisinopril 10 mg tablet 10 mg PO Patient Comments: TAKE 1 2 (ONE HALF) TABLET BY MOUTH ONCE DAILY FOR 30 DAYS pravastatin 10 MG tablet 10 mg PO DAILY Patient Comments: pantoprazole 40 MG tablet,delayed release (DR/EC) 40 mg PO DAILY aspirin 81 MG tablet,chewable 81 mg PO DAILY amoxicillin 875 mg tablet 875 mg PO BID Qty: 20 0RF prednisone 20 mg tablet 20 mg PO BID 5 Days Qty: 10 0RF benzonatate 100 mg capsule 100 mg PO TID PRN (Reason: cough) Qty: 30 0RF triamterene-hydrochlorothiazid 37.5-25 tablet 1 tab PO DAILY amoxicillin 500 mg capsule 500 mg PO TID 10 Days Qty: 30 0RF triamcinolone acetonide 0.5 % cream 1 applic topical TID Qty: 30 0RF Rx Instructions: apply to rash as prescribed Referrals Follow up/Referrals: Leyla Burch APRN [Primary Care Provider] - See instructions Activity Restrictions/Add. Instructions Additional Instructions/Restrictions: Take the medications and apply the topical medication as directed. Follow up with your regular doctor. We sent the wound swab to the lab for a culture. This test takes 3 days to complete. It will tell which bacteria is causing the rash on your face. If you're not getting better make sure you follow up to go over the culture report. Sometimes the antibiotics need to be switched. GO TO THE ER FOR ANY WORSENING SYMPTOMS Clinical Impressions Clinical Impression: Rash of face, Impetigo Instructions Patient Instructions: MALCOLM Peter for Impetigo Discharge ED Provider: Matt Morejon [facility] General Stated complaint: rash, spreading Time Seen by Provider: 05/10/23 18:23 History of Present Illness Provider Complaint: She has had a rash on the right side of her face for the past 4 days. She states that it itches. She denies that it is spreading. She denies that it is anywhere else on her body. Related Data Home Medications Medication Instructions Recorded Confirmed aspirin 81 mg chewable tablet 81 mg PO DAILY Blood thinner 01/12/18 08/27/22 pantoprazole 40 mg tablet,delayed 40 mg PO DAILY STOMACH 01/12/18 08/27/22 release pravastatin 10 mg tablet 10 mg PO DAILY Cholesterol 01/12/18 08/27/22 triamterene 37.5 1 tab PO DAILY HTN 04/11/19 08/27/22 mg-hydrochlorothiazide 25 mg tablet lisinopril 10 mg tablet 10 mg PO 11/22/19 08/27/22 Previous Rx's Medication Instructions Recorded amoxicillin 875 mg tablet 875 mg PO BID #20 tabs 09/11/22 prednisone 20 mg tablet 20 mg PO BID 5 days #10 tabs 09/11/22 benzonatate 100 mg capsule 100 mg PO TID PRN cough #30 caps 11/02/22 amoxicillin 500 mg capsule 500 mg PO TID 10 days #30 caps 03/31/23 triamcinolone acetonide 0.5 % 1 applic topical TID #30 grams 03/31/23 topical cream cephalexin 500 mg capsule 500 mg PO QID #40 caps 05/10/23 methylprednisolone 4 mg tablets in 4 mg PO DIRECTED #21 tabs 05/10/23 a dose pack mupirocin 2 % topical ointment 1 applic topical TID 7 days #15 05/10/23 grams Allergies Allergy/AdvReac Type Severity Reaction Status Date / Time Sulfa (Sulfonamide Allergy Unknown Rash Verified 08/27/22 09:48 Antibiotics) [SULFA (SULFONAMIDE ANTIBIOTICS)] tiotropium Allergy Unknown Rash Verified 08/27/22 09:48 [From [facility] WITH HANDIHALER] [facility] Disclaimer: The information contained in this section may have been updated after the patient was seen, as this information can be updated by other users. Medical History (Updated 05/10/23 @ 18:52 by Matt Morejon APRN) Anxiety Cyst of ovary Hyperlipidemia Hypertension Surgica
[2023-05-10 18:56] VITALS: BP 146/77; PULSE 63; RESP 18; TEMP 36.6; O2SAT 96
== END 2023-05-10 18:57 | disposition home or self-care (01) ==
PROVIDERS: Emergency Provider Nurse Practitioner Family; PCP Nurse Practitioner Family
DX: L01.00 Impetigo, unspecified (principal); R21 Rash and other nonspecific skin eruption; B96.89 Other specified bacterial agents as the cause of diseases classified elsewhere; I10 Essential (primary) hypertension; E78.5 Hyperlipidemia, unspecified; F41.9 Anxiety disorder, unspecified
CPT/HCPCS: 87070; 87077; 87186; 87205; 99212; 99214; G0463

== ENCOUNTER → 2023-09-22 14:06 | Outpatient (CLI) | payer BC, OTHER, SELFPAY ==
[2023-09-22 12:32] LABS: Hemoglobin A1C 5.4 % (4.0-6.0)
[2023-09-22 12:37] LABS: Alanine Aminotransferase 62 U/L (12-78); Albumin Level 4.6 g/dl (3.5-5.0); Albumin/Globulin Ratio 1.6 (1.1-1.8); Alkaline Phosphatase 78 U/L (38-126); Anion Gap 13.8 mEq/L (5-15); Aspartate Amino Transferase 52 U/L (14-36); Bilirubin,Total 0.6 mg/dl (0.2-1.3); Blood Urea Nitrogen 20 mg/dl (7-17); Calcium 9.9 mg/dl (8.4-10.2); Carbon Dioxide 25 mmol/L (22.0-30.0); Chloride 100 mmol/L (98-107); Chol/HDL Ratio 4.2 (1-3.5); Cholesterol 180 mg/dl (140-200); Estimated Glomerular Filt Rate 73 ml/min (>60); GFR (African American) 88 ML/MIN (>60); Globulin 2.9 g/dL (1.3-3.2); Glucose 96 mg/dl (74-100); HDL Cholesterol 43 mg/dl (40-60); Potassium 4.8 mmoL/L (3.5-5.1); Sodium 134 mmol/L (136-145); Total Protein,Serum 7.5 g/dl (6.3-8.2); Triglycerides 175 mg/dl (30-150); VLDL Cholesterol 35 mg/dL (0-40)
[2023-09-22 12:56] LABS: 25-OH Vitamin D, Total 50.8 ng/mL (30-100)
[2023-09-22 13:08] LABS: Thyroid Stimulating Hormone 1.31 uIU/mL (0.465-4.68)
[2023-09-22 13:27] LABS: Vitamin B12 977 pg/mL (239-931)
== END ==
PROVIDERS: PCP Nurse Practitioner Family; Visit Provider Nurse Practitioner Family
DX: E78.00 Pure hypercholesterolemia, unspecified (principal); I10 Essential (primary) hypertension; R63.5 Abnormal weight gain; Z68.35 Body mass index [BMI] 35.0-35.9, adult
CPT/HCPCS: 80053; 80061; 82306; 82607; 83036; 84443

== ENCOUNTER → 2023-10-20 12:37 | Outpatient (CLI) | payer BC, OTHER, SELFPAY ==
[2023-10-20 14:02] LABS: Chloride 100 mmol/L (98-107)
[2023-10-20 14:03] LABS: Potassium 4.6 mmoL/L (3.5-5.1); Sodium 135 mmol/L (136-145)
[2023-10-20 14:05] LABS: Alanine Aminotransferase 59 U/L (12-78); Albumin Level 4.5 g/dl (3.5-5.0); Albumin/Globulin Ratio 1.6 (1.1-1.8); Alkaline Phosphatase 94 U/L (38-126); Anion Gap 11.6 mEq/L (5-15); Aspartate Amino Transferase 49 U/L (14-36); Bilirubin,Total 0.5 mg/dl (0.2-1.3); Blood Urea Nitrogen 19 mg/dl (7-17); Carbon Dioxide 28 mmol/L (22.0-30.0); Estimated Glomerular Filt Rate 64 ml/min (>60); GFR (African American) 77 ML/MIN (>60); Globulin 2.9 g/dL (1.3-3.2); Total Protein,Serum 7.4 g/dl (6.3-8.2)
[2023-10-20 14:06] LABS: Calcium 9.5 mg/dl (8.4-10.2); Glucose 94 mg/dl (74-100)
== END ==
PROVIDERS: PCP Nurse Practitioner Family; Visit Provider Nurse Practitioner Family
DX: R74.8 Abnormal levels of other serum enzymes (principal)
CPT/HCPCS: 80053

== ENCOUNTER 2024-01-12 16:29 | Outpatient (CLI) | payer BC, OTHER, SELFPAY ==
[2024-01-12 16:25] LABS: Alanine Aminotransferase 35 U/L (12-78); Albumin Level 4.2 g/dl (3.5-5.0); Albumin/Globulin Ratio 1.7 (1.1-1.8); Alkaline Phosphatase 89 U/L (38-126); Anion Gap 11.5 mEq/L (5-15); Aspartate Amino Transferase 33 U/L (14-36); Bilirubin,Total 0.5 mg/dl (0.2-1.3); Blood Urea Nitrogen 16 mg/dl (7-17); Calcium 9.3 mg/dl (8.4-10.2); Carbon Dioxide 28 mmol/L (22.0-30.0); Chloride 103 mmol/L (98-107); Chol/HDL Ratio 4.5 (1-3.5); Cholesterol 174 mg/dl (140-200); Estimated Glomerular Filt Rate 73 ml/min (>60); GFR (African American) 88 ML/MIN (>60); Globulin 2.5 g/dL (1.3-3.2); Glucose 78 mg/dl (74-100); HDL Cholesterol 39 mg/dl (40-60); Magnesium 2.1 mg/dl (1.6-2.3); Potassium 4.5 mmoL/L (3.5-5.1); Sodium 138 mmol/L (136-145); Total Protein,Serum 6.7 g/dl (6.3-8.2); Triglycerides 117 mg/dl (30-150); VLDL Cholesterol 23 mg/dL (0-40)
[2024-01-12 16:36] LABS: Direct LDL Cholesterol 98.86 mg/dL (100-129)
[2024-01-12 16:56] LABS: Thyroid Stimulating Hormone 1.63 uIU/mL (0.465-4.68)
== END 2024-01-12 23:59 ==
LOC: LAB.DROPOF 16:30
PROVIDERS: PCP Nurse Practitioner Family; Visit Provider Nurse Practitioner Family
DX: E78.5 Hyperlipidemia, unspecified (principal); M62.838 Other muscle spasm
CPT/HCPCS: 80053; 80061; 83735; 84443

== ENCOUNTER 2024-05-17 14:55 | Outpatient (CLI) | payer BC, OTHER, SELFPAY ==
--- NOTE | 2024-05-17 15:00 | XR_ITS ---
FINAL REPORT CLINICAL HISTORY: Posterior ankle pain COMPARISON: None FINDINGS: RIGHT ANKLE 3 views of the right ankle were obtained. There is no acute fracture or dislocation. The mortise is intact. There is mild degenerative change. Small calcaneal spurs are noted. Soft tissues are unremarkable. IMPRESSION: Degenerative changes without acute bony abnormality. Small calcaneal spurs. Reviewed, Interpreted and Dictated by Marco Antonio Sams III, MD Transcribed by Autumn Delgado Authenticated and [facility]
--- NOTE | 2024-05-17 15:00 | XR_ITS ---
FINAL REPORT CLINICAL HISTORY: Posterior ankle pain COMPARISON: 08/27/2019 FINDINGS: LEFT ANKLE Three views demonstrate no acute fracture or dislocation. A plantar calcaneal spur is noted. There is a calcification in the region of the posterior plantar aponeurosis which appears stable compared to the prior study. IMPRESSION: No acute bony abnormality. Reviewed, Interpreted and Dictated by Marco Antonoi Sams III, MD Transcribed by Autumn Delgado Authenticated and [facility]
[2024-05-17 16:54] LABS: Alanine Aminotransferase 32 U/L (12-78); Albumin Level 4.4 g/dl (3.5-5.0); Albumin/Globulin Ratio 1.5 (1.1-1.8); Alkaline Phosphatase 80 U/L (38-126); Aspartate Amino Transferase 37 U/L (14-36); Bilirubin,Total 0.7 mg/dl (0.2-1.3); Blood Urea Nitrogen 18 mg/dl (7-17); Calcium 9.9 mg/dl (8.4-10.2); Carbon Dioxide 26 mmol/L (22.0-30.0); Chloride 104 mmol/L (98-107); Estimated Glomerular Filt Rate 73 ml/min (>60); GFR (African American) 88 ML/MIN (>60); Globulin 2.9 g/dL (1.3-3.2); Glucose 79 mg/dl (74-100); Sodium 137 mmol/L (136-145); Total Protein,Serum 7.3 g/dl (6.3-8.2)
== END 2024-05-17 23:59 | disposition home or self-care (01) ==
LOC: LAB 14:56
PROVIDERS: PCP Internal Medicine; Visit Provider Nurse Practitioner Family
DX: M25.571 Pain in right ankle and joints of right foot (principal); M25.572 Pain in left ankle and joints of left foot; B35.1 Tinea unguium; R74.8 Abnormal levels of other serum enzymes; E78.5 Hyperlipidemia, unspecified
CPT/HCPCS: 73610; 80053

== ENCOUNTER 2024-05-20 15:55 | Outpatient (CLI) | payer BC, OTHER, SELFPAY ==
--- NOTE | 2024-05-20 15:59 | XR_ITS ---
FINAL REPORT CLINICAL HISTORY: Foot Pain FINDINGS: Left foot Three views were obtained. There is no acute fracture or dislocation. There are mild degenerative changes. Calcaneal spurs are identified. No soft tissue abnormality is identified. IMPRESSION: Mild degenerative changes. Reviewed, Interpreted and Dictated by Marco Antonio Sams III, MD Transcribed by Soraya Sheppard Authenticated and [facility]
--- NOTE | 2024-05-20 15:59 | XR_ITS ---
FINAL REPORT CLINICAL HISTORY: Foot Pain FINDINGS: Right foot Three views were obtained. There is no acute fracture or dislocation. There are mild degenerative changes. Calcaneal spurs are identified. No soft tissue abnormality is identified. IMPRESSION: Mild degenerative changes. Reviewed, Interpreted and Dictated by Marco Antonio Sams III, MD Transcribed by Soraya Sheppard Authenticated and [facility]
== END 2024-05-20 23:59 | disposition home or self-care (01) ==
LOC: RAD 15:57
PROVIDERS: PCP Internal Medicine; Visit Provider Podiatrist
DX: M79.671 Pain in right foot (principal); M79.672 Pain in left foot
CPT/HCPCS: 73630

== ENCOUNTER 2024-06-10 11:19 | Emergency (ER) | payer BC, OTHER, SELFPAY ==
[2024-06-10 11:53] LABS: UTC Strep Screen (Rapid) Negative (Negative)
[2024-06-10 12:00] VITALS: BP 138/71; PULSE 71; RESP 18; TEMP 36.6; O2SAT 96; BMI 32.5
--- NOTE | 2024-06-10 12:03 | EXP.UTC ---
Discharge Plan Disposition Patient Disposition: Home, Self-Care Condition: Good Prescriptions Prescriptions: New amoxicillin 875 mg tablet 875 mg PO Q12H Qty: 20 0RF benzonatate 100 mg capsule 100 mg PO TIDP PRN (Reason: Cough) Qty: 30 0RF methylprednisolone 4 mg Tablets,Dose Pack 4 mg PO DIRECTED 6 Days Qty: 21 0RF Rx Instructions: Take 1 pack as directed for 6 days No Action cyclobenzaprine 10 mg tablet 10 mg PO HS PRN (Reason: muscle spasm) 30 Days Qty: 30 2RF pantoprazole 20 mg tablet,delayed release (DR/EC) 20 mg PO HS lisinopril 10 mg tablet 10 mg PO DAILY 90 Days Qty: 90 1RF pravastatin 10 mg tablet 10 mg PO DAILY 90 Days Qty: 90 1RF triamterene-hydrochlorothiazid 37.5-25 mg tablet 1 tab PO DAILY 90 Days Qty: 90 1RF vitamin E (dl, acetate) 450 mg (1,000 unit) capsule 450 mg PO DAILY cetirizine 10 mg tablet 10 mg PO DAILY multivitamin Tablet 1 tab PO DAILY omega-3 fatty acids-fish oil 300-1,000 mg capsule 2 cap PO DAILY terbinafine HCl 250 mg tablet 250 mg PO DAILY Qty: 30 1RF meloxicam 15 mg tablet 15 mg PO DAILY Qty: 30 2RF aspirin 81 MG tablet,chewable 81 mg PO DAILY Referrals Follow up/Referrals: Leyla Burch APRN [Primary Care Provider] - See instructions Activity Restrictions/Add. Instructions Additional Instructions/Restrictions: Drink plenty of fluids. Take tylenol or ibuprofen for pain or fever. Take the medications as directed. Follow up with your regular doctor. GO TO THE ER FOR ANY WORSENING SYMPTOMS Clinical Impressions Clinical Impression: Otitis media, Pharyngitis Instructions Patient Instructions: DI for Pharyngitis/Tonsillopharyngitis -- Adult, Sore Throat Print Language Print Language: Panamanian Discharge ED Provider: Matt Morejon [facility] General Stated complaint: sore throat, pain in both ears Mode of Arrival: Ambulatory Source of Information: Patient Limitations: No Limitations Time Seen by Provider: 06/10/24 12:03 Description of Symptoms (Recalled from Triage Doc. by RN): pt c/o a sore throat, bilateral ear aches, and nasal drainage ongoing since yesterday. HEENT Symptoms (Recalled from RN notes): Yes Resp Symptoms (Recalled from RN notes): No Skin Symptoms (Recalled from RN notes): No MS Symptoms (Recalled from RN notes): No Functional Status (Recalled from RN notes): wnl History of Present Illness Provider Complaint: She states that for the past 3 days she has had bilateral ear pain and sore throat. Related Data Home Medications ?Medication ?Instructions ?Recorded ?Confirmed aspirin 81 mg chewable tablet 81 mg PO DAILY Blood thinner 01/12/18 05/17/24 cetirizine 10 mg tablet 10 mg PO DAILY 05/17/24 05/17/24 multivitamin 1 tab PO DAILY 05/17/24 05/17/24 omega-3 fatty acids-fish oil 300 2 cap PO DAILY 05/17/24 05/17/24 mg-1,000 mg capsule pantoprazole 20 mg tablet,delayed 20 mg PO HS 05/17/24 05/17/24 release vitamin E (dl, acetate) 450 mg 450 mg PO DAILY 05/17/24 05/17/24 (1,000 unit) capsule Previous Rx's ?Medication ?Instructions ?Recorded lisinopril 10 mg tablet 10 mg PO DAILY 90 days #90 tabs 09/22/23 pravastatin 10 mg tablet 10 mg PO DAILY Cholesterol 90 days 09/22/23 #90 tabs triamterene 37.5 1 tab PO DAILY HTN 90 days #90 tabs 09/22/23 mg-hydrochlorothiazide 25 mg tablet cyclobenzaprine 10 mg tablet 10 mg PO HS PRN muscle spasm 30 01/12/24 days #30 tabs meloxicam 15 mg tablet 15 mg PO DAILY #30 tabs 05/17/24 terbinafine HCl 250 mg tablet 250 mg PO DAILY #30 tabs 05/17/24 amoxicillin 875 mg tablet 875 mg PO Q12H #20 tabs 06/10/24 benzonatate 100 mg capsule 100 mg PO TIDP PRN Cough #30 caps 06/10/24 methylprednisolone 4 mg tablets in 4 mg PO DIRECTED 6 days #21 tabs 06/10/24 a dose pack Allergies Allergy/AdvReac Type Severity Reaction Status Date / Time Sulfa (Sulfonamide Allergy Unknown Rash Verified 05/17/24 14:03 Antibiotics) [SULFA (SULFONAMIDE ANTIBIOTICS)] tiotropium Allergy Unknown Rash Verified 05/17/24 14:03 [From SP[facility]A WITH HANDIHALER] Worker's Comp Is this a Worker's Comp case?: No [facility] Disclaimer: The information contained in this section may have been updated after the patient was seen, as this information can be updated by other users. Medical History Anxiety Cyst of ovary Hyperlipidemia Hypertension LAYNE (obstructive sleep apnea) Surgical History Hx of cardiac cath Hx of cholecystectomy Hx of hysterectomy Hx of tonsillectomy Hx of tubal ligation Social History Smoking Status: Never smoker alcohol intake: current alcohol intake frequency: holidays/special occasions only current occupational status: other Travel in the last 8 weeks: None housing: house caffeine: Yes ROS Obtained: Yes All systems reviewed & no additional complaints except as documented Constitutional Constitutional: Denies chills, Reports fever(s) and Reports poor appetite Eyes Eyes: Denies eye discharge ENT Ears, Nose, Mouth, and Throat: Denies ear discharge, Reports otalgia, Denies hearing loss, Denies sinus pain and Reports sore throat Cardiovascular Cardiovascular: Denies chest pain and Denies dyspnea Respiratory Respiratory: Denies chest congestion, Reports cough and Denies dyspnea Gastrointestinal Gastrointestingal: Denies abdominal pain, diarrhea, nausea or vomiting Musculoskeletal Musculoskeletal: Denies arthralgias Integumentary/Breasts Skin/Breast: Denies rash Physical Exam General General appearance: alert and in no apparent distress Head Head exam: atraumatic, normocephalic and normal inspection Eye Eye exam: Present normal appearance; Absent PERRL or EOMI ENT ENT exam: Present mucous membranes moist and normal external ear exam Expanded ENT Exam TM/Canal exam: Bilateral TM: erythema, bulging and effusion Nose exam: Absent sinus tenderness Nasal speculum exam: Bilateral: normal Mouth exam: Present normal external inspection and other; Absent drooling Teeth exam: Present normal inspection Throat exam: Present tonsillar erythema and tonsillomegaly Neck Neck exam: Present normal inspection, full ROM and trachea midline; Absent tenderness, meningismus or lymphadenopathy Chest Chest inspection: Present normal inspection and symmetric chest wall rise; Absent tenderness Respiratory Respiratory exam: Present normal lung sounds bilaterally; Absent respiratory distress, wheezes or stridor Cardiovascular Cardiovascular exam: Present regular rate, normal rhythm and normal heart sounds; Absent tachycardia or irregular rhythm Abdominal Exam Abdominal exam: Present soft and normal bowel sounds; Absent distention, tenderness, guarding, rebound or rigidity Extremities Exam Extremities exam: Present normal inspection and normal capillary refill; Absent tenderness, joint swelling or calf tenderness Back Exam Back exam: Present normal inspection and full ROM; Absent tenderness, CVA tenderness (R) or CVA tenderness (L) Neurological Exam Neurological exam: Present alert, oriented X3, CN II-XII intact, normal gait and reflexes normal; Absent motor sensory deficit Psychiatric Psychiatric exam: Present normal affect and normal mood Skin Skin exam: Present warm, dry, intact and normal color Lymphatic Lymphatic Findings: no adenopathy Medical Decision Making Medical Records Medical records reviewed: No I reviewed the patient's medical records. Frandy Inquiry Pt receiving controlled substance: No Vital Signs: 06/10/24 12:00 Temperature 97.9 F Temperature Source Oral Pulse Rate [Left] 71 Respiratory Rate 18 Blood Pressure [Right Arm] 138/71 Blood Pressure Mean [Right Arm] 93 Blood Pressure Source [Right Arm] Automatic Cuff Blood Pressure Position [Right Arm] Sitting 02 Sat by Pulse Oximetry 96 Oxygen Delivery Method Room Air Lab Data Lab Results 06/10/24 11:45: Strep Scn Rapid Clinic Negative Orders (Tests/Meds): ORDERS Category Date Time Status Strep Screen Confirmation Stat Micro 06/10/24 11:45 Received
[2024-06-10 12:22] VITALS: BP 138/71; PULSE 71; RESP 18; TEMP 36.6
== END 2024-06-10 12:22 | disposition home or self-care (01) ==
PROVIDERS: Emergency Provider Nurse Practitioner Family; PCP Nurse Practitioner Family
DX: H66.93 Otitis media, unspecified, bilateral (principal); J02.9 Acute pharyngitis, unspecified
CPT/HCPCS: 87880; 99212; 99214; G0463

== ENCOUNTER 2024-09-24 13:29 | Outpatient (CLI) | payer BC, OTHER, SELFPAY ==
[2024-09-24 11:54] LABS: Adenovirus,PCR Not Detected (NotDetected); Bordetella Pertussis Not Detected (NotDetected); Chlamydophila Pneumoniae, PCR Not Detected (NotDetected); Coronavirus 19, PCR Not Detected (NotDetected); Coronavirus 229E Not Detected (NotDetected); Coronavirus NL63 Not Detected (NotDetected); Coronavirus OC43 Not Detected (NotDetected); Coronovirus HKU1,PCR Not Detected (NotDetected); Human Metapneumovirus Not Detected (NotDetected); Influenza A, PCR Not Detected (NotDetected); Influenza AH1, 2009 Not Detected (NotDetected); Influenza AH1, PCR Not Detected (NotDetected); Influenza AH3,PCR Not Detected (NotDetected); Influenza B, PCR Not Detected (NotDetected); Mycoplasma Pneumoniae, PCR Not Detected (NotDetected); Parainfluenza 1, PCR Not Detected (NotDetected); Parainfluenza 2, PCR Not Detected (NotDetected); Parainfluenza 3, PCR Not Detected (NotDetected); Parainfluenza 4, PCR Not Detected (NotDetected); Respiratory Syncytial Virus Not Detected (NotDetected); Rhinovirus/Enterovirus Not Detected (NotDetected)
== END 2024-09-24 23:59 | disposition home or self-care (01) ==
LOC: LAB.DROPOF 13:30
PROVIDERS: PCP Internal Medicine; Visit Provider Internal Medicine
DX: R50.9 Fever, unspecified (principal); R11.0 Nausea; R19.7 Diarrhea, unspecified; R51.9 Headache, unspecified
CPT/HCPCS: 87633

== ENCOUNTER 2024-12-26 11:40 | Emergency (ER) | payer BC, OTHER, SELFPAY ==
[2024-12-26 11:42] VITALS: BP 156/76; PULSE 101; RESP 20; TEMP 37.3; O2SAT 99; BMI 34.0
[2024-12-26 12:08] LABS: Microscopic, Urine URINE MICROSCOPIC (MICROSCOPIC)
[2024-12-26 12:08] LABS: Coronavirus 19, PCR Not Detected (NotDetected); Influenza A, PCR Not Detected (NotDetected); Influenza B, PCR Not Detected (NotDetected)
--- NOTE | 2024-12-26 12:12 | ED_ITS ---
<Statement entered by Jose Alejandro Floyd MD - 12/26/24 14:14> I was consulted by the RAMÍREZ, and we discussed the complexity of the problems being addressed. I approved the treatment and management plan for this patient's care in the emergency department, thus performing a substantive portion of the medical decision making. Jose Alejandro Floyd MD, CHELY, FACEP Discharge Plan Disposition Patient Disposition: Home, Self-Care Condition: Good Prescriptions Prescriptions: New amoxicillin-pot clavulanate 875-125 mg tablet 1 tab PO BID Qty: 20 0RF No Action pantoprazole 20 mg tablet,delayed release (DR/EC) 20 mg PO HS Culturelle Probiotic-Multivit 1 billion cell- 1 gram tablet,chewable 1 tab PO DAILY vitamin E (dl, acetate) 450 mg (1,000 unit) capsule 450 mg PO DAILY cetirizine 10 mg tablet 10 mg PO DAILY multivitamin Tablet 1 tab PO DAILY omega-3 fatty acids-fish oil 300-1,000 mg capsule 2 cap PO DAILY aspirin [Adult Aspirin Regimen] 81 mg tablet,delayed release (DR/EC) 81 mg PO DAILY lisinopril 10 mg tablet 10 mg PO DAILY 90 Days Qty: 90 1RF pravastatin 10 mg tablet See Rx Instructions .ROUTE .COMPLEX Qty: 90 0RF Dose Instruction: TAKE 1 TABLET BY MOUTH ONCE DAILY FOR CHOLESTEROL Rx Instructions: TAKE 1 TABLET BY MOUTH ONCE DAILY FOR CHOLESTEROL triamterene-hydrochlorothiazid 37.5-25 mg tablet See Rx Instructions .ROUTE .COMPLEX Qty: 90 0RF Dose Instruction: TAKE 1 TABLET BY MOUTH ONCE DAILY FOR HIGH BLOOD PRESSURE Rx Instructions: TAKE 1 TABLET BY MOUTH ONCE DAILY FOR HIGH BLOOD PRESSURE meloxicam 15 mg tablet See Rx Instructions .ROUTE .COMPLEX Qty: 30 0RF Dose Instruction: Take 1 tablet by mouth once daily Rx Instructions: Take 1 tablet by mouth once daily Referrals Follow up/Referrals: Leyla Burch APRN [Primary Care Provider] - See instructions Activity Restrictions/Add. Instructions Additional Instructions/Restrictions: Increase your fluid intake. Eat a bland diet. Follow-up with your PCP within 7 days. Return to the ED for worsening of condition. Complete your antibiotic in its entirety. Clinical Impressions Clinical Impression: Diverticulitis Abdominal pain Qualifiers: Abdominal location: generalized Qualified Code(s): R10.84 - Generalized abdominal pain Instructions Patient Instructions: DI for Acute Abdominal Pain Print Language Print Language: Burmese Discharge ED Provider: Jose Alejandro Floyd General Adult HPI General Chief complaint: Abdominal Pain Stated complaint: abd pain back pain fever Time Seen by Provider: 12/26/24 12:05 Mode of Arrival: Ambulatory Source of Information: Patient Limitations: No Limitations Description of Symptoms (Recalled from ER Triage Doc. by RN): Patient presents ambulatory to triage. States she was sent from Urgent Care. States she has been having lower abdominal pain x2 days. Endorses nausea. Denies vomiting. Endorses soft stools. Per report from Urgent Care, the patient had suspected she was constipated, so she took Miralax yesterday. Patient endorses suprapubic pain upon urination. States, It feels like I can't get it all to come out. Last BM yesterday. Post-menopausal with a partial hysterectomy. Patient states that she had a cholecystectomy but retains her appendix. History of Present Illness HPI narrative: Patient is a 64-year-old female who presents to the ED with complaints of generalized abdominal pain, she describes the abdominal pain as sharp stabbing pain. Related Data Home Medications ?Medication ?Instructions ?Recorded ?Confirmed cetirizine 10 mg tablet 10 mg PO DAILY 05/17/24 12/26/24 multivitamin 1 tab PO DAILY 05/17/24 12/26/24 omega-3 fatty acids-fish oil 300 2 cap PO DAILY 05/17/24 12/26/24 mg-1,000 mg capsule pantoprazole 20 mg tablet,delayed 20 mg PO HS 05/17/24 12/26/24 release vitamin E (dl, acetate) 450 mg 450 mg PO DAILY 05/17/24 12/26/24 (1,000 unit) capsule [id number]-[id number]. coag-B. 1 tab PO DAILY 09/24/24 12/26/24 subtilis-inulin 1 billion cell-1 gram chew tab (Culturelle Probiotic-Multivit) aspirin 81 mg tablet,delayed 81 mg PO DAILY 12/26/24 12/26/24 release (Adult Aspirin Regimen) Previous Rx's ?Medication ?Instructions ?Recorded lisinopril 10 mg tablet 10 mg PO DAILY 90 days #90 tabs 08/25/24 pravastatin 10 mg tablet See Rx Instructions .Route 09/28/24 .COMPLEX #90 tabs triamterene 37.5 See Rx Instructions .Route 12/26/24 mg-hydrochlorothiazide 25 mg tablet .COMPLEX #90 tabs meloxicam 15 mg tablet See Rx Instructions .Route 11/22/24 .COMPLEX #30 tabs amoxicillin 875 mg-potassium 1 tab PO BID #20 tabs 12/26/24 clavulanate 125 mg tablet Allergies Allergy/AdvReac Type Severity Reaction Status Date / Time Sulfa (Sulfonamide Allergy Unknown Rash Verified 12/26/24 14:00 Antibiotics) (SULFA (SULFONAMIDE ANTIBIOTICS)) tiotropium (From SPIRIVA Allergy Unknown Rash Verified 12/26/24 14:00 WITH HANDIHALER) [facility] Disclaimer: The information contained in this section may have been updated after the patient was seen, as this information can be updated by other users. Medical History (Updated 12/26/24 @ 14:05 by Ese Cruz APRN) Abdominal pain LAYNE (obstructive sleep apnea) Anxiety Hyperlipidemia Hypertension Cyst of ovary Surgical History Hx of cardiac cath Hx of cholecystectomy Hx of tonsillectomy Hx of hysterectomy Hx of tubal ligation Social History Smoking Status: Never smoker alcohol intake: current alcohol intake frequency: holidays/special occasions only current occupational status: other Travel in the last 8 weeks: None housing: house caffeine: Yes Have you lived/traveled outside [place] in past 30 days?: No Contact w/someone who lives/traveled outside [place] past 30 days?: No Exposure to someone with infectious disease in past 14 days?: No Do you have a fever (greater than 100.4 F or 38 C)?: No Have you tested positive for COVID-19: No Exposed to someone with COVID-19 in past 14 days?: No Do you have a sore throat?: No Do you have a cough?: No Do you have any weakness?: No Do you have any diarrhea?: No Are you experiencing any unusual bleeding?: No Do you have any muscle aches/pain?: No Do you have any abdominal pain?: No Are you experiencing loss of taste or smell?: No Other Medical History Have you received the Flu Vaccine for this season: Yes Have you received the Pneumonia Vaccine: No ROS Obtained: Yes Systems reviewed as appropriate & no additional complaints except as documented Physical Exam General General appearance: alert and in no apparent distress Head Head exam: atraumatic and normocephalic Eye Eye exam: Present normal appearance and PERRL ENT ENT exam: Present normal exam Neck Neck exam: Present normal inspection Chest Chest inspection: Present normal inspection and symmetric chest wall rise; Absent tenderness Respiratory Respiratory exam: Present normal lung sounds bilaterally Cardiovascular Cardiovascular exam: Present regular rate Abdominal Exam Abdominal exam: Present soft, tenderness and normal bowel sounds; Absent rigidity Extremities Exam Extremities exam: Present normal inspection and full ROM Back Exam Back exam: Present normal inspection and full ROM Neurological Exam Neurological exam: Present alert and oriented X3 Psychiatric Psychiatric exam: Present normal affect and normal mood Skin Skin exam: Present warm and dry Medical Decision Making Medical Records Screening: Per USPSTF and CDC recommendations, given the prevalence of disease in our region, it is our hospital?s policy to screen for HIV and viral Hepatitis for all patients aged 18 and over and those with ongoing risk factors. Frandy Inquiry Pt receiving controlled substance: No Frandy was queried for this patient: No Vital Signs: 12/26/24 11:42 12/26/24 12:22 12/26/24 12:31 Temperature 99.2 F Temperature Source Oral Pulse Rate 99 H 83 Pulse Rate [Radial] 101 H Respiratory Rate 20 18 15 Blood Pressure 134/76 108/68 L Blood Pressure [R ARm] 156/76 H Blood Pressure Mean [R ARm] 102 Blood Pressure Source [R ARm] Automatic Cuff 02 Sat by Pulse Oximetry 99 100 100 Oxygen Delivery Method Room Air Room Air 12/26/24 13:00 Temperature Temperature Source Pulse Rate 84 Pulse Rate [Radial] Respiratory Rate 11 L Blood Pressure 124/70 Blood Pressure [R ARm] Blood Pressure Mean [R ARm] Blood Pressure Source [R ARm] 02 Sat by Pulse Oximetry 98 Oxygen Delivery Method Room Air Lab Data Lab Results 12/26/24 11:51: SARS-CoV-2 (PCR) Not detected, Influenza A Untype (PCR) Not detected, Influenza Type B (PCR) Not detected 12/26/24 11:59: Urine Color Yellow, Urine Appearance Clear, Urine pH 7.5, Ur Specific Christiana 1.020, Urine Protein Negative, Urine Glucose (UA) Negative, Urine Ketones Negative, Urine Blood Negative, Urine Nitrate Negative, Urine Bilirubin Negative, Urine Urobilinogen 0.2, Ur Leukocyte Esterase Negative, Urine RBC None, Urine WBC 3-5, Ur Squamous Epith Cells 3-5, Urine Bacteria Trace 12/26/24 12:11: WBC 13.4 H, RBC 4.33, Hgb 13.5, Hct 40.2, MCV 92.8, MCH 31.2, MCHC 33.6, RDW 12.1, Plt Count 342, MPV 9.9, Neut % (Auto) 74.3, Lymph % (Auto) 13.8, Ransom % (Auto) 8.9, Eos % (Auto) 2.2, Baso % (Auto) 0.4, Neut # (Auto) 10.0 H, Lymph # (Auto) 1.9, Ransom # (Auto) 1.2 H, Eos # (Auto) 0.3, Baso # (Auto) 0.1, Sodium 135 L, Potassium 3.9, Chloride 97 L, Carbon Dioxide 29, Anion Gap 12.9, BUN 14, Creatinine 0.90, Estimated Creat Clear 78, Estimated GFR 63, Est GFR ( Amer) 77, Glucose 109 H, Calcium 9.3, Total Bilirubin 1.4 H, AST 40 H, ALT 40, Alkaline Phosphatase 116, Total Protein 7.9, Albumin 4.5, Globulin 3.4 H , Albumin/Globulin Ratio 1.3, Lipase 50, Serum HCG, Qual Negative, HCV Ab NANCY w/Rflx PCR Qn Negative, HIV Ag/Ab Combo Qual Negative 12/26/24 12:18: Lactate 1.1 12/26/24 12:11 12/26/24 12:11 Orders (Tests/Meds): ED MEDICATIONS Discontinued Medications Generic Name Dose Route Start Last Admin Trade Name Freq PRN Reason Stop Dose Admin Lactated Ringer's 500 mls @ 999 mls/hr 12/26/24 12:22 12/26/24 12:28 Lactated Ringer's 1000 Ml Bag IV 12/26/24 12:52 999 mls/hr .Q31M ONE Administration Iopamidol 75 ml 12/26/24 12:42 12/26/24 12:43 Iopamidol-370 (76%);100ml Bottle IV 12/26/24 12:43 75 ml ONCE ONE Administration Morphine Sulfate 4 mg 12/26/24 12:18 12/26/24 12:23 Morphine 10mg/Ml Syringe IV 12/26/24 12:19 Not Given ONCE ONE Morphine Sulfate 4 mg 12/26/24 12:22 12/26/24 12:23 Morphine 4mg/Ml Syringe IV 12/26/24 12:23 4 mg ONCE ONE Administration Ondansetron HCl 4 mg 12/26/24 12:18 12/26/24 12:23 Ondansetron 4mg/2ml Vial IV 12/26/24 12:19 4 mg ONCE ONE Administration Sodium Chloride 10 ml 12/26/24 12:42 12/26/24 12:43 Sodium Chloride 0.9% 10ml Syr (Rad Only) IV 12/26/24 12:43 10 ml ONCE ONE Administration ORDERS Category Date Time Status CT abdomen pelvis w con Stat Cat Scan 12/26/24 12:18 Completed Complete Blood Count Auto Diff Stat Lab 12/26/24 12:11 Completed Comprehensive Metabolic Panel Stat Lab 12/26/24 12:11 Completed HIV Combo Stat Lab 12/26/24 12:11 Completed Hepatitis C Ab Qual. W/ RFX Stat Lab 12/26/24 12:11 Completed Lactic Acid Stat Lab 12/26/24 12:18 Completed Lipase Stat Lab 12/26/24 12:11 Completed Rapid PCR Covid and Flu A/B Stat Lab 12/26/24 11:51 Completed Serum [HCG Qualitative, Serum] Stat Lab 12/26/24 12:11 Completed Urinalysis and Microscopic Stat Lab 12/26/24 11:59 Completed Medical Decision Narrative: In summary, patient is a 64-year-old female PMHx HTN, HLD, obesity who presents to the ED for abdominal pain x 3 days. Patient states her abdominal pain is generalized, intermittent and feels like sharp stabbing pain. Patient states she has noticed that she has had decreased bowel movements. She took MiraLAX yesterday without relief. Patient states she has had a history of C. difficile and this feels similar, she does not have diarrhea. She has not been on any recent antibiotics. Surgical history of cholecystectomy and hysterectomy. Denies fever, chills, headache, visual disturbances, chest pain, shortness of breath, back pain, dysuria, rectal bleeding. Upon initial exam, patient is alert, oriented and cooperative. Patient is hemodynamically stable. Physical exam remarkable for distended abdomen, normal bowel sounds, generalized abdominal tenderness. Differential diagnosis includes SBO, diverticulitis, infectious process, viral illness, colitis, among others. Initial workup will be conducted with hematologic labs, imaging. Initial inventions include IV fluids, morphine and Zofran. Initial workup reviewed by me. CBC remarkable for leukocytosis, WBC 13.4, stable H&H. CMP remarkable for sodium of 135. Lipase normal at 50. Serum negative. CT of the abdomen pelvis final read remarkable for the sigmoid colon demonstrates asymmetric wall thickening and diverticuli with pericolonic inflammation consistent with an acute diverticulitis, no perforation or abscess. Stable septated right adnexal cyst likely ovarian. Upon repeat evaluation, patient had an acceptable resolution of symptoms. Her abdominal pain completely resolved. They were ambulatory in the ED. Able to tolerate PO. Given this, I feel the patient is appropriate for discharge home at this time. Shared decision making used, patient will go home on course of Augmentin x 10 days. We discussed increasing fluid intake, eating a bland diet, patient will follow-up with her PCP in 7 days. We discussed return precautions to the ED and patient verbalized understanding. Critical Care Critical Care Time Critical Care Time: No
--- NOTE | 2024-12-26 12:18 | CT_ITS ---
PROCEDURE INFORMATION: Exam: CT Abdomen And Pelvis With Contrast Exam date and time: 12/26/2024 12:41 PM Age: 64 years old Clinical indication: Abdominal pain; Additional info: Abd pain TECHNIQUE: Imaging protocol: Computed tomography of the abdomen and pelvis with contrast. Radiation optimization: All CT scans at this facility use at least one of these dose optimization techniques: automated exposure control; mA and/or kV adjustment per patient size (includes targeted exams where dose is matched to clinical indication); or iterative reconstruction. Contrast material: ISOVUE; Contrast volume: 75 ml; Contrast route: IV; COMPARISON: CT ABDOMEN PELVIS W CON 07/12/2022 2:04 PM FINDINGS: Lungs: Visualized lung bases are clear. Liver: There is diffuse fatty infiltration of the liver. Gallbladder and biliary ducts: The gallbladder has been resected. Pancreas: Normal. No ductal dilation. Spleen: Normal. No splenomegaly. Adrenal glands: Normal. No mass. Kidneys and ureters: Again noted subcentimeter hypodense lesions in both kidneys likely benign cysts not requiring further workup at this time. No hydroureteronephrosis. Stomach and bowel: Sigmoid demonstrates asymmetric wall thickening and diverticuli with pericolonic inflammation consistent with acute diverticulitis. Appendix: No evidence of appendicitis. Intraperitoneal space: Unremarkable. No free air. No significant fluid collection. Vasculature: There is mild atherosclerosis of the aorta. No aneurysm or dissection. Lymph nodes: Unremarkable. No enlarged lymph nodes. Urinary bladder: Unremarkable as visualized. Reproductive: The uterus has been resected. Again noted is a septated hypodensity in the right adnexa measuring 2.5 x 2.5 cm on series 3, image 98 likely ovarian. Bones/joints: Unremarkable. No acute fracture. Soft tissues: Unremarkable. IMPRESSION: 1. Sigmoid colon demonstrates asymmetric wall thickening and diverticuli with pericolonic inflammation consistent with acute diverticulitis. No perforation or abcess. 2. Stable septated right adnexal cyst measuring 2.5 x 2.5 cm likely ovarian. Clinical scenario should determine need for further assessment with nonemergent pelvic ultrasound. 3. Recommend correlation with the body the report for further details regarding additional nonemergent findings.
[2024-12-26 12:22] VITALS: BP 134/76; PULSE 99; RESP 18; O2SAT 100
[2024-12-26] MEDS: ONDANSETRON 4MG/2ML VIAL 4 MG IV (12:23)
[2024-12-26] MEDS: MORPHINE 4MG/ML SYRINGE 4 MG IV (12:23)
[2024-12-26 12:28] LABS: Albumin Level 4.5 g/dl (3.5-5.0); Chloride 97 mmol/L (98-107)
[2024-12-26 12:28] LABS: Appearance,Urine CLEAR (Clear); Bilirubin,Urine Negative (Negative); Blood, Urine Negative (Negative); Color,Urine YELLOW (Yellow); Glucose,Urine (UA) Negative (Negative); Ketones,Urine Negative (Negative); Leukocyte Esterase,Urine Negative (Negative); Nitrate,Urine Negative (Negative); PH,Urine 7.5 (5.0-8.5); Protein,Urine Negative (Negative); Urobilinogen,Urine 0.2 EU/dl (0.2)
[2024-12-26] MEDS: LACTATED RINGERS 1000ML 500 ML 999 ML IV (12:28)
[2024-12-26 12:29] LABS: Potassium 3.9 mmoL/L (3.5-5.1); Sodium 135 mmol/L (136-145)
[2024-12-26 12:31] VITALS: BP 108/68; PULSE 83; RESP 15; O2SAT 100
[2024-12-26 12:31] LABS: Alanine Aminotransferase 40 U/L (12-78); Anion Gap 12.9 mEq/L (5-15); Aspartate Amino Transferase 40 U/L (14-36); Basophils # 0.1 K/mm3 (0-0.2); Basophils % 0.4 % (0.1-2.0); Blood Urea Nitrogen 14 mg/dl (7-17); Carbon Dioxide 29 mmol/L (22.0-30.0); Creatinine Clearance Estimated 78 mL/min (50-200); Eosinophils # 0.3 K/mm3 (0.0-0.4); Eosinophils % 2.2 % (0.1-12.0); Estimated Glomerular Filt Rate 63 ml/min (>60); GFR (African American) 77 ML/MIN (>60); Hematocrit 40.2 % (37.0-47.0); Hemoglobin 13.5 g/dL (12.2-16.2); Lipase 50 U/L (23-300); Lymphocytes # 1.9 K/mm3 (0.7-4.5); Lymphocytes % 13.8 % (10-50); Mean Corpuscular HGB Conc 33.6 g/dL (31.8-35.4); Mean Corpuscular Hemoglobin 31.2 pg (27.0-31.2); Mean Corpuscular Volume 92.8 fl (81-99); Mean Platelet Volume 9.9 fl (7.4-10.4); Monocytes # 1.2 K/mm3 (0.1-1.0); Monocytes % 8.9 % (1.7-9.3); Neutrophils % 74.3 % (37.0-80.0); Platelet Count 342 K/mm3 (142-424); Red Blood Count 4.33 M/mm3 (4.20-5.40); Red Cell Distribution Width 12.1 % (11.5-17.5); White Blood Count 13.4 K/mm3 (4.8-10.8)
[2024-12-26 12:32] LABS: Albumin/Globulin Ratio 1.3 (1.1-1.8); Alkaline Phosphatase 116 U/L (38-126); Bilirubin,Total 1.4 mg/dl (0.2-1.3); Calcium 9.3 mg/dl (8.4-10.2); Globulin 3.4 g/dL (1.3-3.2); Glucose 109 mg/dl (74-100); Total Protein,Serum 7.9 g/dl (6.3-8.2)
--- NOTE | 2024-12-26 12:39 | PC.NURSE ---
Patient to radiology for a CT
[2024-12-26] MEDS: IOPAMIDOL-370 (76%);100ML BOTTLE 75 ML IV (12:43)
[2024-12-26] MEDS: SODIUM CHLORIDE 0.9% 10ML SYR (RAD ONLY) 10 ML IV (12:43)
[2024-12-26 12:45] LABS: Bacteria,Urine Trace /lpf
--- NOTE | 2024-12-26 12:48 | PC.NURSE ---
Patient back from radiology
[2024-12-26 12:49] LABS: Lactic Acid 1.1 mmol/L (0.7-2.1)
[2024-12-26 13:00] VITALS: BP 124/70; PULSE 84; RESP 11; O2SAT 98
[2024-12-26 13:15] LABS: HCG Qualitative, Serum Negative (Negative)
[2024-12-26 13:41] LABS: HIV Combo NEGATIVE (Negative)
[2024-12-26 13:49] LABS: Hepatitis C Ab Qual. W/ RFX NEGATIVE (Negative)
[2024-12-26 14:14] VITALS: BP 124/70; PULSE 84; RESP 12; TEMP 36.7
== END 2024-12-26 14:15 | disposition home or self-care (01) ==
PROVIDERS: Nurse Practitioner; Emergency Provider Student in an Organized Health Care Education/Training Program; PCP Nurse Practitioner Family
DX: K57.92 Diverticulitis of intestine, part unspecified, without perforation or abscess without bleeding (principal); R10.30 Lower abdominal pain, unspecified; R10.2 Pelvic and perineal pain; R11.0 Nausea
CPT/HCPCS: 74177; 80053; 81001; 83605; 83690; 84703; 85025; 86803; 87389; 87636; 96361; 96374; 96375; 99285; J2270; J2405; J7120; Q9967

== ENCOUNTER 2025-01-06 09:26 | Outpatient (CLI) | payer BC, OTHER, SELFPAY ==
[2025-01-06 16:02] LABS: Basophils # 0.1 K/mm3 (0-0.2); Eosinophils # 0.4 K/mm3 (0.0-0.4); Eosinophils % 6.6 % (0.1-12.0); Hematocrit 42.2 % (37.0-47.0); Lymphocytes # 2.6 K/mm3 (0.7-4.5); Lymphocytes % 43.3 % (10-50); Mean Corpuscular HGB Conc 33.2 g/dL (31.8-35.4); Mean Corpuscular Hemoglobin 31.6 pg (27.0-31.2); Mean Corpuscular Volume 95.3 fl (81-99); Mean Platelet Volume 9.6 fl (7.4-10.4); Monocytes # 0.4 K/mm3 (0.1-1.0); Monocytes % 7.2 % (1.7-9.3); Neutrophils # 2.5 K/mm3 (1.8-7.8); Neutrophils % 41.4 % (37.0-80.0); Platelet Count 411 K/mm3 (142-424); Red Blood Count 4.43 M/mm3 (4.20-5.40); Red Cell Distribution Width 12.3 % (11.5-17.5); White Blood Count 6.1 K/mm3 (4.8-10.8)
[2025-01-06 16:32] LABS: Carbon Dioxide 27 mmol/L (22.0-30.0); Chloride 101 mmol/L (98-107); Potassium 4.7 mmoL/L (3.5-5.1); Sodium 139 mmol/L (136-145)
[2025-01-06 16:33] LABS: Alanine Aminotransferase 33 U/L (12-78); Albumin Level 4.6 g/dl (3.5-5.0); Albumin/Globulin Ratio 1.7 (1.1-1.8); Alkaline Phosphatase 86 U/L (38-126); Anion Gap 15.7 mEq/L (5-15); Aspartate Amino Transferase 35 U/L (14-36); Bilirubin,Total 0.3 mg/dl (0.2-1.3); Blood Urea Nitrogen 18 mg/dl (7-17); Calcium 9.8 mg/dl (8.4-10.2); Chol/HDL Ratio 4.3 (1-3.5); Cholesterol 165 mg/dl (140-200); Estimated Glomerular Filt Rate 73 ml/min (>60); GFR (African American) 88 ML/MIN (>60); Globulin 2.7 g/dL (1.3-3.2); Glucose 89 mg/dl (74-100); HDL Cholesterol 38 mg/dl (40-60); Total Protein,Serum 7.3 g/dl (6.3-8.2); Triglycerides 246 mg/dl (30-150); VLDL Cholesterol 49 mg/dL (0-40)
[2025-01-06 16:41] LABS: Hemoglobin A1C 5.5 % (4.0-6.0)
[2025-01-06 16:47] LABS: Free T4 (Free Thyroxine) 1.04 ng/dl (0.78-2.19)
[2025-01-06 17:02] LABS: Thyroid Stimulating Hormone 1.42 uIU/mL (0.465-4.68)
== END 2025-01-06 23:59 | disposition home or self-care (01) ==
LOC: LAB.DROPOF 01-07 13:09
PROVIDERS: PCP Internal Medicine; Visit Provider Internal Medicine
DX: Z13.220 Encounter for screening for lipoid disorders (principal); Z13.1 Encounter for screening for diabetes mellitus; Z13.29 Encounter for screening for other suspected endocrine disorder
CPT/HCPCS: 80053; 80061; 83036; 84439; 84443; 85025